=== PATIENT | female | born 1970 | race Caucasian/White ===

== ENCOUNTER 2020-09-21 06:50 | Outpatient (CLI) | payer OTHER, SELFPAY ==
--- NOTE | ~2020-09-21 | MR_ITS ---
EXAMINATION: MR brain/brain stem wo/w con DATE: 09/21/2020 09:19 INDICATION: Benign neoplasm of the brain. TECHNIQUE: Magnetic resonance imaging (MRI) of the brain and brainstem was performed without and with 20 mL MultiHance intravenous contrast. Sequences included sagittal and axial T1-weighted FSE, axial diffusion-weighted FS EPI, axial T2*-weighted GRE, axial T2-weighted FLAIR Propeller, and axial T2-we ighted Propeller. Postcontrast sequences included axial and coronal T1-weighted FSE. Apparent diffusi on coefficient (ADC) maps were created. COMPARISON: None. FINDINGS: There are 2 masses in the left superior scalp with the larger measuring 12 mm, likely benig n. There are scattered areas of nonspecific increased T2-weighted signal intensity in the cerebral wh ite matter. There is no intracranial hemorrhage, acute infarction, or abnormal intracranial mass lesi on. The ventricles are normal in size. There are mucous retention cyst in left maxillary sinus. The o rbits are normal. The mastoid air cells are normal. IMPRESSION: 1. Extensive nonspecific cerebral white matter disease. The differential diagnosis includes premature chronic small vessel ischemic disease (especially if the patient has cardiovascular risk factors), d emyelinating disease such as multiple sclerosis, drug abuse, vasculitis, or reactive astrocytosis (gl iosis) secondary to nonspecific etiology. Reviewed, dictated and finalized at location A. IMPRESSION: 1. Extensive nonspecific cerebral white matter disease. The differential diagno sis includes premature chronic small vessel ischemic disease (especially if the patient has cardiovascular risk factors), demyelinating disease such as multip le sclerosis, drug abuse, vasculitis, or reactive astrocytosis (gliosis) second julian to nonspecific etiology.
== END 2020-09-21 06:51 | disposition home or self-care (01) ==
LOC: CHSIMG 06:55
PROVIDERS: PCP Nurse Practitioner Family; Visit Provider Nurse Practitioner Family
DX: Z86.011 Personal history of benign neoplasm of the brain (principal)
CPT/HCPCS: 70553; A9577

== ENCOUNTER 2021-10-19 16:13 | Outpatient (CLI) | payer OTHER, SELFPAY ==
--- NOTE | ~2021-10-19 | XR_ITS ---
DATE: 10/19/2021 16:32 INDICATION: Anterior right shoulder pain. No known injury. TECHNIQUE: 10/19/2021 right shoulder COMPARISON: None FINDINGS: No fracture or dislocation, periosteal reaction or bone destruction. No abnormal soft tiss ue calcification. IMPRESSION: Negative Reviewed, dictated and finalized at location B. IMPRESSION: Negative
== END 2021-10-19 16:14 | disposition home or self-care (01) ==
LOC: CHSIMG 16:17
PROVIDERS: PCP Nurse Practitioner Family; Visit Provider Nurse Practitioner Family
DX: M25.511 Pain in right shoulder (principal)
CPT/HCPCS: 73030

== ENCOUNTER 2021-10-26 12:20 | Outpatient (CLI) | payer OTHER, SELFPAY | END 2021-10-26 12:21 | disposition home or self-care (01) | LOC: CHSIMG 12:21 | PROVIDERS: PCP Nurse Practitioner Family; Visit Provider Nurse Practitioner Family | DX: M25.511 Pain in right shoulder (principal); Z53.8 Procedure and treatment not carried out for other reasons | CPT/HCPCS: 99199 ==

== ENCOUNTER 2022-03-13 07:42 | Outpatient (RCR) | payer OTHER, SELFPAY ==
--- NOTE | 2022-03-13 08:17 | PTOPEVAL1 ---
Assessment and note entered by JT File, PT Evaluation Information Assessment Status Evaluation Diagnosis s/p R arthroscopic shoulder surgery Onset 02/21/22 Subjective Information patient reports she had shoulder pain for the last 6 months. she reports ultimately she thought she was getting a RTC repair, but reports they did not have to repair anything in the shoulder. she reports she had some arthritis, tendonitis, and bursitis that was cleaned up. she reports she is on no restrictions. 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 she reports she is sitting and uses a computer and phone all day. Reported Pain Level Pain Score 5: Self Report Assessment PT Clinical Summary mrs. khan presents to skilled PT services for evaluation and treatment of R shoulder pain, weakness, and decreased rom post R arthroscopic surgery. she has no restrictions, but continues to display weakness, pain, and decreased rom compared to the L UE. she would do well to attend skilled PT to improve her objective/functional deficits and progress towards a return to her prior level functional activity performance and quality of life. Plan of Care Interventions Electrical Stimulation,Hot Pack/Cold Pack,Manual Therapy,Neuro Re-education,Patient/Caregiver Educati,Therapeutic Activities,Therapeutic Exercise PT Services Indicated Yes Treatment Frequency and 3x weekly for 12 visits Duration These treatments will address the objective and functional deficits as defined above. The patient will be advanced safely and appropriately in order for the patient to progress towards his/her prior level of function. Additional exercises will be introduced and as well as a comprehensive home exercise program upon discharge, if needed, ?to ensure carryover of functional gains achieved in the clinic. This treatment plan has been reviewed and agreement upon by the patient.
--- NOTE | 2022-03-23 08:10 | PTOPPROG ---
Assessment and note entered by JT File, PT Evaluation Information Assessment Status Progress Diagnosis s/p R arthroscopic shoulder surgery Onset 02/21/22 Subjective Information patient reports she is feeling good this date. she reports she has 1/10 pain in the R shoulder. she reports she has been impressed with how it is healing thus far. she does reports difficulty still reaching far overhead in such activities as to hang laundry up. Assessment PT Clinical Summary mrs. khan presents to skilled PT services for her 4th skilled PT visit. as of this date focus of therapy has been on shinto of ROM of the R shoulder. she has improved greatly, but continues to be limited in ER and IR of the R shoulder. she was progressed in exercises this date to begin to work on return of full strength of the R shoulder. she is progressing well thus far, but would benefit from continued skilled PT to achieve full rom, strength, and functional goals for the R shoulder. Plan of Care Interventions Electrical Stimulation,Hot Pack/Cold Pack,Manual Therapy,Neuro Re-education,Patient/Caregiver Educati,Therapeutic Activities,Therapeutic Exercise PT Services Indicated Yes Treatment Frequency and continue skilled PT 3x weekly for 8 visits Duration These treatments will address the objective and functional deficits as defined above. The patient will be advanced safely and appropriately in order for the patient to progress towards his/her prior level of function. Additional exercises will be introduced and as well as a comprehensive home exercise program upon discharge, if needed, ?to ensure carryover of functional gains achieved in the clinic. This treatment plan has been reviewed and agreement upon by the patient.
== END 2022-03-16 08:16 | disposition still patient (30) ==
LOC: CHSPT 07:42
PROVIDERS: Visit Provider Specialist
DX: M25.511 Pain in right shoulder (principal)
CPT/HCPCS: 97014; 97110; 97161; G0283

== ENCOUNTER → 2022-03-16 15:36 | Outpatient (CLI) | payer OTHER, SELFPAY ==
--- NOTE | ~2022-03-16 | CT_ITS ---
EXAMINATION:CT lung screening DATE: 03/16/2022 16:14 INDICATION: Tobacco use. Current smoker with 27 pack year history. TECHNIQUE: Computed tomography (CT) of the chest was performed without intravenous contrast. Automate d exposure control and iterative reconstruction technique were employed. The dose-length product (DLP ) was 83.68 mGy-cm. COMPARISON: None. FINDINGS: There is mild emphysema. There is mild scarring at the lung apices. No pleural effusion. Th e heart size is normal. No pericardial effusion. There is mild thoracic spondylosis. IMPRESSION: 1. Lung-RADS category 2: Benign appearance or behavior. Continue annual screening with noncontrast lo w-dose chest CT in 12 months. Reviewed, dictated and finalized at location A. LY RESOURCE COORDINATOR IMPRESSION: 1. Lung-RADS category 2: Benign appearance or behavior. Continue annual screeni ng with noncontrast low-dose chest CT in 12 months.
== END ==
PROVIDERS: PCP Nurse Practitioner Family
DX: Z12.2 Encounter for screening for malignant neoplasm of respiratory organs (principal); Z87.891 Personal history of nicotine dependence
CPT/HCPCS: 71271

== ENCOUNTER 2022-03-23 08:18 | Outpatient (RCR) | payer BC, OTHER, SELFPAY ==
--- NOTE | 2022-04-25 08:03 | PTOPREEVAL ---
Assessment and note entered by JT File, PT Evaluation Information Assessment Status Re-evaluation Diagnosis s/p R arthroscopic shoulder surgery Onset 02/21/22 Subjective Information patient reports she feels Alright this date. she reports she was just recently at the surgeon for follow up on saturday. she reports he is happy with her progress. he gave her a mm relaxor for the anterior R shoulder pain, and performed and ultrasound of the R shoulder. she reports she does have a lingering partial RTC tear in the R shoulder that is old. Reported Pain Level Pain Score 2,0: Self Report Assessment PT Clinical Summary mr. khan presents to skilled PT for her 12th skilled therapy visit this date. she has met goal for HEP performance, and has made progress towards all other goals. she continues to have pain and weakness in the R shoulder that effects her functional lifting and return to normal prior activity performance. she would benefit from continued skilled PT to further progress her strength, reduce pain, and meet goals for return to prior level activities without limitations. Plan of Care Interventions Manual Therapy,Neuro Re-education,Patient/ Caregiver Educati,Therapeutic Activities, Therapeutic Exercise PT Services Indicated Yes Treatment Frequency and continue skilled PT 2x weekly for 6 more visits Duration These treatments will address the objective and functional deficits as defined above. The patient will be advanced safely and appropriately in order for the patient to progress towards his/her prior level of function. Additional exercises will be introduced and as well as a comprehensive home exercise program upon discharge, if needed, ?to ensure carryover of functional gains achieved in the clinic. This treatment plan has been reviewed and agreement upon by the patient.
== END 2022-04-30 23:59 | disposition home or self-care (01) ==
LOC: CHSPT 08:18
PROVIDERS: Visit Provider Specialist
DX: M25.511 Pain in right shoulder (principal)
CPT/HCPCS: 97014; 97110; 97140; 97530; G0283

== ENCOUNTER 2024-05-07 17:00 | Outpatient (CLI) | payer BC, OTHER, SELFPAY ==
--- NOTE | ~2024-05-07 | XR_ITS ---
EXAMINATION: XR knee RT 3V DATE: 05/07/2024 17:24 INDICATION: Right knee pain. TECHNIQUE: 3 views of right knee were obtained. COMPARISON: None. FINDINGS: Alignment is normal. No fracture. Joint spaces are normal. No knee joint effusion. IMPRESSION: 1. Normal right knee. Reviewed, dictated and finalized at location A. [facility] IMPRESSION: 1. Normal right knee.
--- OUTSIDE RECORDS SUMMARY | 2024-05-07 17:05 | XMS_ITS | Referral Summary ---
Author Organization [facility] Care Team Providers Care Brooch Maker Novelty Name Role Phone Irina Dominguez NP Primary Care Provider [phone] Allergies Active Allergy Reactions Criticality Noted Date Comments Amlodipine Other (See comments) Low 11/26/2016 EDEMA Doxycycline Lisinopril Other (See comments) Low 11/26/2016 COUGH Penicillins Hives Medium 11/26/2016 Prochlorperazine Vomiting Low 02/03/2020 Medications albuterol HFA (PROVENTIL HFA,VENTOLIN HFA,PROAIR HFA) 90 mcg/actuation inhaler Inhale 2 puffs every 4 (four) hours as needed 9 Active beclomethasone (QVAR) 40 mcg/actuation inhaler Active fluticasone propionate (FLONASE) 50 mcg/actuation nasal spray Administer 1-2 sprays into affected nostril(s) daily as needed Active montelukast (SINGULAIR) 10 mg tablet 8 Active hydroCHLOROthia zide (HYDRODIURIL) 25 mg tablet Take 25 mg by mouth daily Active metoprolol XL (TOPROL-XL) 25 mg extended release tablet Take 25 mg by mouth daily Active Active Problems Problem Noted Date Diagnosed Date CLEOPATRA (obstructive sleep apnea) 01/28/2018 Cough 12/11/2016 Essential (primary) hypertension 12/11/2016 Panlobular emphysema 12/11/2016 Tobacco use disorder 12/11/2016 Social History Tobacco Use Types Packs/Day Years Used Date Smoking Tobacco: Every Day AUDIT-C Answer Date Recorded Q1: How often do you have a drink containing alc ohol? Monthly or less 11/08/2020 Average Number of Drinks Not on file 021 Frequency of Binge Drinking Not on file 10/17 Comments No Sex and Gender Information Value Date Recorded Sex Assigned at Not on file Legal Sex Female 10:57 AM BROWNING PROCESSOR Gender Identity Female 02/03/2020 7:30 AM BROWNING PROCESSOR Sexual Orientation Straight 02/03/2020 7: 30 AM BROWNING PROCESSOR Last Filed Vital Signs Vital Sign Reading Time Taken Comments Blood Pressure 120/90 02/16/2021 11:44 AM BROWNING PROCESSOR Pulse 85 02/16/2021 11:44 AM BROWNING PROCESSOR Temperature 36.4 C (97.5 F) 02/03/2020 8:23 AM BROWNING PROCESSOR Respiratory Rate 12 02/16/2021 11:44 AM BROWNING PROCESSOR Oxygen Saturation - - Inhaled Oxygen Concentration - - Weight 69.7 kg (153 lb 8.8 oz) 02/16/2021 11:44 AM BROWNING PROCESSOR Height 157.5 cm (5' 2 ) 02/16/2021 11:44 AM BROWNING PROCESSOR Body Mass Index 28.08 02/16/2021 11:44 AM BROWNING PROCESSOR Plan of Treatment Not on file Insurance CIG Care Teams Brooch Maker Novelty Relationship Specialty Start Date End Date Irina Dominguez NP [address] [place] [address] PCP - General Nurse Practitioner 10/05/20
--- OUTSIDE RECORDS SUMMARY | 2024-05-07 17:05 | XMS_ITS | Clinical Summary ---
Author Organization [facility] HealthCare Care Team Providers Care Rn Trauma Name Role Phone AngelicaBryantIrinadennis Waldron NP Primary Care Provider [phone] Allergies Active Allergy Reactions Criticality Noted Date [...] Panlobular emphysema 12/11/2016 Tobacco use disorder 12/11/2016 Surgical History Surgery Date Site/Laterality Comments HYSTERECTOMY Medical History Medical History Date Comments Smoking Hypertension COPD (chronic obstructive pulmonary disease) (HC C) Family History Medical History Relation Name Comments Breast cancer Mother Relation Name Status Comments Mother Social History Tobacco Use Types Packs/Day Years [...] on file Legal Sex Female 10:57 AM ABSORPTION PLANT OPERATOR Gender Identity Female 02/03/2020 7:30 AM ABSORPTION PLANT OPERATOR Sexual Orientation Straight 02/03/2020 7: 30 AM ABSORPTION PLANT OPERATOR Obstetrics History Para Term AB IAB SAB Ectopic Multiple Livin g Live Births 2 2 2 Date Outcome GA Total Labor Labor/2nd/3rd Weight Sex Type Anes PTL Liliana A1 A5 Name Clin Term Term Last Filed Vital Signs Vital Sign Reading Time Taken Comments Blood Pressure 120/90 02/16/2021 11:44 AM ABSORPTION PLANT OPERATOR Pulse 85 02/16/2021 11:44 AM ABSORPTION PLANT OPERATOR Temperature 36.4 C (97.5 F) 02/03/2020 8:23 AM ABSORPTION PLANT OPERATOR Respiratory Rate 12 02/16/2021 11:44 AM ABSORPTION PLANT OPERATOR Oxygen Saturation - - Inhaled Oxygen Concentration - - Weight 69.7 kg (153 lb 8.8 oz) 02/16/2021 11:44 AM ABSORPTION PLANT OPERATOR Height 157.5 cm (5' 2 ) 02/16/2021 11:44 AM ABSORPTION PLANT OPERATOR Body Mass Index 28.08 02/16/2021 11:44 AM ABSORPTION PLANT OPERATOR Plan of Treatment Not on file Insurance CIGFRANKIE Care Teams Rn Trauma Relationship Specialty Start Date End Date Irina Dominguez NP [address] [place] [address] PCP - General Nurse Practitioner 10/05/20
--- OUTSIDE RECORDS SUMMARY | 2024-05-07 17:05 | XMS_ITS | Continuity of Care Document ---
Author Organization [facility] Address [address] [place] [address] Phone Care Team Providers Care Punch Finisher Name Role Phone [facility] Unavailable Unavail able Deuce Hennessy Unavailable Unavailable Procedures Procedure Date Vision Svcs Frames Purchases SV Plastic Sph [place] To +/- 4 6 Lens-Index 1.54-1.79 Glass [facility] Frames Purchases SV Plastic Sph [place] To +/- 4 2 Tint Photochromatic, Plastic Anti-reflective Coating Roll And/or Italian Eye Exam & Treatment Advance Directives Directive Yes / No Effective Date File Name No Information Encounters Encounter Description Practice Location Reason(s) For Visit Diagnoses Date Provider Providers Copied on Encounter [facility], [address], [place], [place], [address], [place] tel:[phone] SEC Enedina Juarez No Information 6 [facility] . [address] [facility], [address], [id number], [place]. tel:[phone] Referring Provider: Dennis Franco, [address] [facility] [address] [facility], [place], [address] . tel:[phone] sulting Provider: Deuce Hennessy, [address], [place], [address] . tel:[phone] [facility], [address], [place], [place], [address], [place] tel:[phone] SEC Enedina Juarez No Information 2 [facility] . [address] [facility], [address], [place], [place], [address], [place]. tel:[phone] Referring Provider: Felipe Michaels, [address] [facility], [place], [address] . tel:[phone] [facility], [address], [place], [place], [address], [place] tel:[phone] SEC Enedina Juarez No Information 2 Kaylah Wang. [address] [facility], [facility] [place], [address], [place]. tel:[phone] Family History Family Member Type Diagnosis Age At Onset No Information Payers Payer name Insurance type Covered democrat ID Authorjacoba rogejessee(s) [facility] CI [id number] Social History Type Description Quantity Date Captured [...]
--- OUTSIDE RECORDS SUMMARY | 2024-05-07 17:06 | XMS_ITS | Data Portability ---
Author Organization [facility] Address [address] [place] [address] Care Team Providers [facility] [employer] [facility] Manager Name Role Phone SONIA ANDRADE [employer] IRINA JACKSON Primary Care Provider Assessment No assessment recorded. Plan of Treatment Reminders Order Date Submit Date Provider Last Modified By Organization Details Last Modified Time Details Appointments ACUTE 15 2024 03:30P M Irina Jackson APN, JACKER-C Not available Not available Not available Lab fecal occult blood, immunoa ssay, stool 2022 023 [email or web address] [facility], 2022 Lillian Cooney, [address], [address], 06/04/2023 08:40:43 Referral None recorde d. Procedures None recorde d. Surgeries None recorde d. Imaging None recorde d. Medication Orders montelu kast 10 mg tablet 2023 024 [facility], [place], [address], 06/04/2023 09:29:14 phenter mine 15 mg capsule 2023 024 [id number], [address] [place], [address], 07/29/2023 18:05:07 azithro mycin 250 mg tablet 2023 024 [id number], [address] [place], [address], 02/27/2024 16:34:12 Medrol (Jc) 4 mg tablets in a dose pack 2023 024 alicea [facility]/Pharmacy #[id number], [address] [place], [address], 02/27/2024 16:34:45 cyclobe nzaprin e 10 mg tablet 2023 024 [id number], [address] [place], [address], 06/04/2023 09:29:17 flutica sone propion ate 50 mcg/act uation nasal spray,s uspensi on 2022 023 [place] [facility], [facility], [place], [address], 11/22/2022 09:09:19 Patient TargetsNo targets recorded. Patient Instructions Encounter Date Encounter Id Patient Instructions Last Modified By Organization Details Last Modified Time 11/22/2022 [id number] allergies: care instructions Not available 11/22/2022 09:09:16 managing your allergies: care instructions Not available 11/22/2022 09:09:16 deciding about using medicines to quit smoking Not available 11/22/2022 09:09:16 Quitting Tobacco : Care Instructions Not available 11/22/2022 09:09:16 cholesterol and triglycerides tests: about these tests Not available 11/22/2022 09:09:16 A healthy lifestyle: care instructions Not available 11/22/2022 09:09:16 prediabetes: car e instructions Not available 11/22/2022 09:09:16 chronic obstructive pulmonary disease (COPD): care instructions Not available 11/22/2022 09:09:16 learning about copd and how to prevent lung infections Not available 11/22/2022 09:09:16 sleep apnea: car e instructions Not available 11/22/2022 09:09:16 learning about vitamin D Not available 11/22/2022 09:09:16 learning about high blood pressure Not available 11/22/2022 09:09:16 Check blood pressure two or three times per week and record findings; bring to F/U appointment. [place] blood pressure is the top number below 140 and the bottom number below 90. If you experience any side effects of medication, call the office. Follow a low salt diet, drink at least 8-10 8oz glasses of water a day, exercise most days of the week. Not available 11/22/2022 09:02:40 follow up in 6 months Not available 11/22/2022 17:51:03 12/06/2022 [id number] influenza (flu) vaccine: care instructions Not available 12/06/2022 16:34:24 06/04/2023 [id number] deciding about using medicines to quit smoking Not available 06/04/2023 09:29:07 Quitting Tobacco : Care Instructions Not available 06/04/2023 09:29:06 allergies: care instructions Not available 06/04/2023 09:29:07 managing your allergies: care instructions Not available 06/04/2023 09:29:06 cholesterol and triglycerides tests: about these tests Not available 06/04/2023 09:29:07 prediabetes: car e instructions Not available 06/04/2023 09:29:06 chronic obstructive pulmonary disease (COPD): care instructions Not available 06/04/2023 09:29:06 learning about copd and how to prevent lung infections Not available 06/04/2023 09:29:07 A healthy lifestyle: care instructions Not available 06/04/2023 09:29:06 sleep apnea: car e instructions Not available 06/04/2023 09:29:07 learning about vitamin D Not available 06/04/2023 09:29:07 learning about high blood pressure Not available 06/04/2023 09:29:07 Check blood pressure two or three times per week and record findings; bring to F/U appointment. [place] blood pressure is the top number below 140 and the bottom number below 90. If you experience any side effects of medication, call the office. Follow a low salt diet, drink at least 8-10 8oz glasses of water a day, exercise most days of the week. Not available 06/04/2023 09:12:12 follow up in 3 months Not available 06/04/2023 09:27:09 02/27/2024 [id number] influenza (flu) vaccine: care instructions Not available 02/27/2024 17:02:32 deciding about using medicines to quit smoking Not available 02/27/2024 17:01:48 Quitting Tobacco : Care Instructions Not available 02/27/2024 17:01:48 allergies: care instructions Not available 02/27/2024 17:01:48 managing your allergies: care instructions Not available 02/27/2024 17:01:48 cholesterol and triglycerides tests: about these tests Not available 02/27/2024 17:01:48 A healthy lifestyle: care instructions Not available 02/27/2024 17:01:48 prediabetes: car e instructions Not available 02/27/2024 17:01:48 chronic obstructive pulmonary disease (COPD): care instructions Not available 02/27/2024 17:01:48 learning about copd and how to prevent lung infections Not available 02/27/2024 17:01:48 sleep apnea: car e instructions Not available 02/27/2024 17:01:48 learning about vitamin D Not available 02/27/2024 17:01:48 learning about high blood pressure Not available 02/27/2024 17:01:48 Check blood pressure two or three times per week and record findings; bring to F/U appointment. [place] blood pressure is the top number below 140 and the bottom number below 90. If you experience any side effects of medication, call the office. Follow a low salt diet, drink at least 8-10 8oz glasses of water a day, exercise most days of the week. Not available 02/27/2024 16:44:55 follow up in 6 months Not available 02/27/2024 16:45:02 Reason for Referral None Reported. Results Created Date Observation Date Name Description Value Unit Range Abnormal Flag Note LastModifiedBy Organization Detail LastModifiedTime 11/23/1911/23/2022 LIPID PANEL cholesterol, total 216 mg/dL 100-19 9 above high normal Not Available [facility] Department [address] [place] [address], [address], 11/23/2022 03:08:28 11/23/19 23 11/23/2022 LIPID PANEL triglyceride s 331 mg/dL 0-149 above high normal Not Available [facility] Department [address] [place] [address], [address], 11/23/2022 03:08:28 11/23/1911/23/2022 LIPID PANEL HDL cholesterol 61 mg/dL 40-999 Not Available [facility] Department [address] [place] [address], [address], 11/23/2022 03:08:28 11/23/1911/23/2022 LIPID PANEL VLDL cholesterol valeria 66 mg/dL 5-40 above high normal Not Available [facility] Department [address] [place] [address], [address], 11/23/2022 03:08:28 11/23/1911/23/2022 LIPID PANEL LDL chol calc (nih) 139 mg/dL 0-99 above high normal Not Available [facility] Department [address] [place] [address], [address], 11/23/2022 03:08:28 11/23/1911/23/2022 COMP. METAB OLIC PANEL (14) glucose 105 mg/dL 70-99 above high normal Not Available [facility] Department [address] [place] [address], [address], 11/23/2022 03:08:29 11/23/19 23 11/23/2022 COMP. METAB OLIC PANEL (14) BUN 10 mg/dL 6-24 Not Available [facility] Department [address] [place] [address], [address], 11/23/2022 03:08:29 11/23/19 23 11/23/2022 COMP. METAB OLIC PANEL (14) creatinine 0.76 mg/dL 0.76-1 .27 Not Available [facility] Department [address] [place] [address], [address], 11/23/2022 03:08:29 11/23/19 23 11/23/2022 COMP. METAB OLIC PANEL (14) eGFR 95 >=60 Units for eGFR value s are mL/mi n/1.7 3 The eGFR Calcu latio n has not been valid ated for patie nts under the age of 18. If test resul ts are displ ayed for a patie nt under the age of 18, disre lg that value . Not Available [facility] Department [address] [place] [address], [address], 11/23/2022 03:08:29 11/23/19 23 11/23/2022 COMP. METAB OLIC PANEL (14) BUN/creatini ne ratio 13 9-23 Not Available [facility] Department [address] [place] [address], [address], 11/23/2022 03:08:29 11/23/19 23 11/23/2022 COMP. METAB OLIC PANEL (14) sodium 137 mmol/ L 134-14 4 Not Available [facility] Department [address] [place] [address], [address], 11/23/2022 03:08:29 11/23/19 23 11/23/2022 COMP. METAB OLIC PANEL (14) potassium 4.1 mmol/ L 3.5-5. 2 Not Available [facility] Department [address] [place] [address], [address], 11/23/2022 03:08:29 11/23/19 23 11/23/2022 COMP. METAB OLIC PANEL (14) chloride 97 mmol/ L 96-106 Not Available [facility] Department [address] [place] [address], [address], 11/23/2022 03:08:29 11/23/19 23 11/23/2022 COMP. METAB OLIC PANEL (14) carbon dioxide, total 29 mmol/ L 20-29 Not Available [facility] [address] [place] [address], [address], 11/23/2022 03:08:29 11/23/19 23 11/23/2022 COMP. METAB OLIC PANEL (14) calcium 10.0 mg/dL 8.7-10 .2 Not Available [facility] Department [address] [place] [address], [address], 11/23/2022 03:08:29 11/23/19 23 11/23/2022 COMP. METAB OLIC PANEL (14) protein, total 7.2 g/dL 6.0-8. 5 Not Available [facility] Department [address] [place] [address], [address], 11/23/2022 03:08:29 11/23/19 23 11/23/2022 COMP. METAB OLIC PANEL (14) albumin 4.5 g/dL 3.8-4. 9 Not Available [facility] Department [address] [place] [address], [address], 11/23/2022 03:08:29 11/23/19 23 11/23/2022 COMP. METAB OLIC PANEL (14) globulin, total 2.7 g/dL 1.5-4. 5 Not Available [facility] Department [address] [place] [address], [address], 11/23/2022 03:08:29 11/23/19 23 11/23/2022 COMP. METAB OLIC PANEL (14) A/G ratio 2.0 1.2-2. 2 Not Available [facility] Department [address] [place] [address], [address], 11/23/2022 03:08:29 11/23/19 23 11/23/2022 COMP. METAB OLIC PANEL (14) bilirubin, total 0.4 mg/dL 0.0-1. 2 Not Available [facility] Department [address] [place], [address], 11/23/2022 03:08:29 11/23/19 23 11/23/2022 COMP. METAB OLIC PANEL (14) alkaline phosphatase 74 IU/L 44-121 Not Available [facility] Department [address] [place] [address], [address], 11/23/2022 03:08:29 11/23/19 23 11/23/2022 COMP. METAB OLIC PANEL (14) AST (SGOT) 15 IU/L 0-40 Not Available [facility] Department [address] [place] [address], [address], 11/23/2022 03:08:29 11/23/19 23 11/23/2022 COMP. METAB OLIC PANEL (14) ALT (SGPT) 14 IU/L 0-32 Not Available [facility] Department [address] [place] [address], [address], 11/23/2022 03:08:29 11/23/19 23 11/23/2022 CBC, NO DIFFE RENTI AL/PL ATELE T WBC 11.0 x10e3 /uL 3.4-10 .8 above high normal Not Available [facility] Department [address] [place] [address], [address], 11/23/2022 03:08:30 11/23/1911/23/2022 CBC, NO DIFFE RENTI AL/PL ATELE T RBC 5.50 x10e6 /uL 3.77-5 .28 above high normal Not Available [facility] Department [address] [place] [address], [address], 11/23/2022 03:08:30 11/23/1911/23/2022 CBC, NO DIFFE RENTI AL/PL ATELE T hemoglobin 16.8 g/dL 11.1-1 5.9 above high normal Not Available [facility] Department [address] [place], [address], 11/23/2022 03:08:30 11/23/1911/23/2022 CBC, NO DIFFE RENTI AL/PL ATELE T hematocrit 52.4 % 34.0-4 6.6 above high normal Not Available [facility] [address] [place], [address], 11/23/2022 03:08:30 11/23/1911/23/2022 CBC, NO DIFFE RENTI AL/PL ATELE T MCV 95 fL 79-97 Not Available [facility] Department [address] [place], [address], 11/23/2022 03:08:30 11/23/1911/23/2022 CBC, NO DIFFE RENTI AL/PL ATELE T MCH 30.5 pg 26.6-3 3.0 Not Available [facility] Department [address] [place], [address], 11/23/2022 03:08:30 11/23/1911/23/2022 CBC, NO DIFFE RENTI AL/PL ATELE T MCHC 32.1 g/dL 31.5-3 5.7 Not Available [facility] [address] [place], [address], 11/23/2022 03:08:30 11/23/1911/23/2022 CBC, NO DIFFE RENTI AL/PL ATELE T RDW 13.9 % 11.5-1 4.5 Not Available [facility] Department [address] [place], [address], 11/23/2022 03:08:30 11/23/1911/2311/23/2022 CBC, NO DIFFE RENTI AL/PL ATELE T NRBC 0 % 0-0 Not Available [facility] [address] [place], [address], 11/23/2022 03:08:30 11/23/19 23 11/23/2022 TSH RFX ON ABNOR MAL TO FREE T4 TSH 0.558 uIU/m L 0.450- 4.500 Not Available [facility] ([facility] [place] [facility] [address] [facility], [place], [address], 11/23/2022 07:13:05 11/23/1911/22/2022 HEMOG LOBIN A1C hemoglobin A1C 6.1 % 4.8-5. 6 above high normal Predi abete s: 5.7 - 6.4 Diabe tomeka: >6.4 Glyce chiara contr ol for adult s with diabe tomeka: <7.0 Not Available [facility] ([facility] [place] [place] [facility]) [address] [facility], [place], [address], 11/23/2022 07:13:06 11/23/19 23 11/23/2022 VITAM IN D, 25-HY DROXY vitamin D, 25-hydroxy 59.4 NG/mL 30.0-1 00.0 Vitam in D defic iency has been defin ed by the Insti tute of Medic ine and an Endoc rine Socie ty pract ice guide line as a level of serum 25-OH vitam in D less than 20 ng/mL (1,2) . The Endoc rine Socie ty went on to furth er defin e vitam in D insuf ficie ncy as a level betwe en 21 and 29 ng/mL (2). 1. IOM (Inst itute of Medic ine). 2009. Dieta ry refer ence intak es for calci um and D. Jennifer greene DC: The [employer] n[employer] sc[employer] . 2. Cailin del rio [place], [place] ey [place], Blu off-F errar i CHAMPION, et al. Evalu ation , treat ment, and preve ntion of vitam in D defic iency : an Endoc rine Socie ty clini valeria pract ice guide line. JCEM. 2010; 96(7) :1911 -30. Not Available [facility] ([facility] [place] [place] [facility]) [address] [facility], [place], [address], 11/23/2022 07:13:07 06/05/19 24 06/06/2023 COLOF IT,OC CULT BLOOD ,FECA L,IA occult blood, fecal, ia Negati ve negati ve Not Available [facility] ([facility] [place] [place] [facility] [address] [facility], [place], [address], 06/06/2023 16:13:50 02/27/20 24 02/28/2024 LIPID PANEL cholesterol, total 218 mg/dL 100-19 9 above high normal Not Available [facility] ([facility] [place] [place] [facility]) [address] [place], [address], 02/28/2024 10:37:25 02/27/20 24 02/28/2024 LIPID PANEL triglyceride s 238 mg/dL 0-149 above high normal Not Available [facility] ([facility] [place] [place] [facility]) [address] [place], [address], 02/28/2024 10:37:25 02/27/20 24 02/28/2024 LIPID PANEL HDL cholesterol 50 mg/dL >39 Not Available [facility] [place] [place] [facility]) [address] [place], [address], 02/28/2024 10:37:25 02/27/20 24 02/28/2024 LIPID PANEL VLDL cholesterol valeria 42 mg/dL 5-40 above high normal Not Available [facility] ([facility] [place] [place] [facility]) [address] [place], [address], 02/28/2024 10:37:25 02/27/20 24 02/28/2024 LIPID PANEL LDL chol calc ([facility]) 126 mg/dL 0-99 above high normal Not Available [facility] ([facility] [place] [place] [facility] [address] [facility] [place], [address], 02/28/2024 10:37:25 02/27/20 24 02/28/2024 COMP. METAB OLIC PANEL (14) glucose 95 mg/dL 70-99 Not Available [facility] ([facility] [place] [place] [facility]) [address] [facility], [place], [address], 02/28/2024 10:37:27 02/27/20 24 02/28/2024 COMP. METAB OLIC PANEL (14) BUN 12 mg/dL 6-24 Not Available [facility] ([facility] [place] [place] [facility] [address] [facility] [place], [address], 02/28/2024 10:37:27 02/27/20 24 02/28/2024 COMP. METAB OLIC PANEL (14) creatinine 0.79 mg/dL 0.57-1 .00 Not Available [facility] ([facility] [place] [place] [facility]) [address] [facility], [place], [address], 02/28/2024 10:37:27 02/27/20 24 02/28/2024 COMP. METAB OLIC PANEL (14) eGFR 90 mL/mi n/1.7 3 >59 Not Available [facility] ([facility] [place] [place] [facility]) [address] [facility], [place], [address], 02/28/2024 10:37:27 02/27/20 24 02/28/2024 COMP. METAB OLIC PANEL (14) BUN/creatini ne ratio 15 9-23 Not Available [facility] ([facility] [place] [place] [facility] [address] [facility] [place], [address], 02/28/2024 10:37:27 02/27/20 24 02/28/2024 COMP. METAB OLIC PANEL (14) sodium 139 mmol/ L 134-14 4 Not Available [facility] ([facility] [place] [place] [facility]) [address] [place], [address], 02/28/2024 10:37:27 02/27/20 24 02/28/2024 COMP. METAB OLIC PANEL (14) potassium 4.3 mmol/ L 3.5-5. 2 Not Available [facility] ([facility] [place] [place] [facility]) [address] [place], [address], 02/28/2024 10:37:27 02/27/20 24 02/28/2024 COMP. METAB OLIC PANEL (14) chloride 98 mmol/ L 96-106 Not Available [facility] ([facility] [place] [place] [facility]) [address] [place], [address], 02/28/2024 10:37:27 02/27/20 24 02/28/2024 COMP. METAB OLIC PANEL (14) carbon dioxide, total 25 mmol/ L 20-29 Not Available [facility] ([facility] [place] [place] [facility] [address] [facility], [place], [address], 02/28/2024 10:37:27 02/27/20 24 02/28/2024 COMP. METAB OLIC PANEL (14) calcium 9.6 mg/dL 8.7-10 .2 Not Available [facility] ([facility] [place] [place] [facility]) [address] [place], [address], 02/28/2024 10:37:27 02/27/20 24 02/28/2024 COMP. METAB OLIC PANEL (14) protein, total 6.4 g/dL 6.0-8. 5 Not Available [facility] ([facility] [place] [place] [facility]) [address] [place], [address], 02/28/2024 10:37:27 02/27/20 24 02/28/2024 COMP. METAB OLIC PANEL (14) albumin 4.3 g/dL 3.8-4. 9 Not Available [facility] ([facility] [place] [place] [facility]) [address] [place], [address], 02/28/2024 10:37:27 02/27/20 24 02/28/2024 COMP. METAB OLIC PANEL (14) globulin, total 2.1 g/dL 1.5-4. 5 Not Available [facility] ([facility] [place] [place] [facility] [address] [facility] [place], [address], 02/28/2024 10:37:27 02/27/20 24 02/28/2024 COMP. METAB OLIC PANEL (14) bilirubin, total 0.2 mg/dL 0.0-1. 2 Not Available [facility] ([facility] [place] [place] [facility] [address] [facility] [place], [address], 02/28/2024 10:37:27 02/27/20 24 02/28/2024 COMP. METAB OLIC PANEL (14) alkaline phosphatase 75 IU/L 44-121 Not Available [facility] ([facility] [place] [place] [facility] [address] [facility] [place], [address], 02/28/2024 10:37:27 02/27/20 24 02/28/2024 COMP. METAB OLIC PANEL (14) AST (SGOT) 14 IU/L 0-40 Not Available [facility] ([facility] [place] [place] [facility] [address] [facility] [place], [address], 02/28/2024 10:37:27 02/27/20 24 02/28/2024 COMP. METAB OLIC PANEL (14) ALT (SGPT) 12 IU/L 0-32 Not Available [facility] ([facility] [place] [place] [facility] [address] [facility] [place], [address], 02/28/2024 10:37:27 02/27/20 24 02/28/2024 TSH RFX ON ABNOR MAL TO FREE T4 TSH 0.813 uIU/m L 0.450- 4.500 Not Available [facility] ([facility] [place] [place] [facility] [address] [facility] [place], [address], 02/28/2024 10:37:28 02/27/20 24 02/28/2024 VITAM IN B12 AND FOLAT E vitamin B12 >2000 above high normal Not Available [facility] ([facility] [place] [place] [facility]) [address] [facility], [place], [address], 02/28/2024 10:37:30 02/27/20 24 02/28/2024 VITAM IN B12 AND FOLAT E folate (folic acid), serum 8.6 NG/mL >3.0 A serum folat e venus ntrat ion of less than 3.1 ng/mL is consi dered to repre sent clini valeria defic iency . Not Available [facility] ([facility] [place] [place] [facility]) [address] [facility], [place], [address], 02/28/2024 10:37:30 02/27/20 24 02/28/2024 HEMOG LOBIN A1C hemoglobin A1C 6.4 % 4.8-5. 6 above high normal Predi abete s: 5.7 - 6.4 Diabe tomeka: >6.4 Glyce chiara contr ol for adult s with diabe tomeka: <7.0 Not Available [facility] ([facility] [place] [place] [facility]) [address] [facility], [place], [address], 02/28/2024 10:37:31 02/27/20 24 02/28/2024 CBC WITH DIFFE RENTI AL/PL ATELE T WBC 11.5 x10e3 /uL 3.4-10 .8 above high normal Not Available [facility] ([facility] [place] [place] [facility] [address] [facility], [place], [address], 02/28/2024 10:37:32 02/27/20 24 02/28/2024 CBC WITH DIFFE RENTI AL/PL ATELE T RBC 5.13 x10e6 /uL 3.77-5 .28 Not Available [facility] ([facility] [place] [place] [facility] [address] [facility], [place], [address], 02/28/2024 10:37:32 02/27/20 24 02/28/2024 CBC WITH DIFFE RENTI AL/PL ATELE T hemoglobin 16.1 g/dL 11.1-1 5.9 above high normal Not Available [facility] ([facility] [place] [place] [facility] [address] [facility], [place], [address], 02/28/2024 10:37:32 02/27/20 24 02/28/2024 CBC WITH DIFFE RENTI AL/PL ATELE T hematocrit 47.5 % 34.0-4 6.6 above high normal Not Available [facility] ([facility] [place] [place] [facility]) [address] [place], [address], 02/28/2024 10:37:32 02/27/20 24 02/28/2024 CBC WITH DIFFE RENTI AL/PL ATELE T MCV 93 fL 79-97 Not Available [facility] ([facility] [place] [place] [facility] [address] [place], [address], 02/28/2024 10:37:32 02/27/20 24 02/28/2024 CBC WITH DIFFE RENTI AL/PL ATELE T MCH 31.4 pg 26.6-3 3.0 Not Available [facility] ([facility] [place] [place] [facility] [address] [facility], [place], [address], 02/28/2024 10:37:32 02/27/20 24 02/28/2024 CBC WITH DIFFE RENTI AL/PL ATELE T MCHC 33.9 g/dL 31.5-3 5.7 Not Available [facility] ([facility] [place] [place] [facility]) [address] [place], [address], 02/28/2024 10:37:32 02/27/20 24 02/28/2024 CBC WITH DIFFE RENTI AL/PL ATELE T RDW 12.8 % 11.7-1 5.4 Not Available [facility] ([facility] [place] [place] [facility] [address] [place], [address], 02/28/2024 10:37:32 02/27/20 24 02/28/2024 CBC WITH DIFFE RENTI AL/PL ATELE T platelets 363 x10e3 /uL 150-45 0 Not Available [facility] ([facility] [place] [place] [facility] [address] [place], [address], 02/28/2024 10:37:32 02/27/20 24 02/28/2024 CBC WITH DIFFE RENTI AL/PL ATELE T neutrophils 71 % notest ab. Not Available [facility] ([facility] [place] [place] [facility] [address] [facility], [place], [address], 02/28/2024 10:37:32 02/27/20 24 02/28/2024 CBC WITH DIFFE RENTI AL/PL ATELE T lymphs 22 % notest ab. Not Available [facility] ([facility] [place] [place] [facility] [address] [facility], [place], [address], 02/28/2024 10:37:32 02/27/20 24 02/28/2024 CBC WITH DIFFE RENTI AL/PL ATELE T monocytes 6 % notest ab. Not Available [facility] ([facility] [place] [place] [facility] [address] [facility], [place], [address], 02/28/2024 10:37:32 02/27/20 24 02/28/2024 CBC WITH DIFFE RENTI AL/PL ATELE T eos 1 % notest ab. Not Available [facility] ([facility] [place] [place] [facility] [address] [facility], [place], [address], 02/28/2024 10:37:32 02/27/20 24 02/28/2024 CBC WITH DIFFE RENTI AL/PL ATELE T basos 0 % notest ab. Not Available [facility] [place] [place] [facility] [address] [facility], [place], [address], 02/28/2024 10:37:32 02/27/20 24 02/28/2024 CBC WITH DIFFE RENTI AL/PL ATELE T neutrophils (absolute) 8.2 x10e3 /uL 1.4-7. 0 above high normal Not Available [facility] ([facility] [place] [place] [facility] [address] [facility], [place], [address], 02/28/2024 10:37:32 02/27/20 24 02/28/2024 CBC WITH DIFFE RENTI AL/PL ATELE T lymphs (absolute) 2.5 x10e3 /uL 0.7-3. 1 Not Available [facility] ([facility] [place] [place] [facility] [address] [facility], [place], [address], 02/28/2024 10:37:32 02/27/20 24 02/28/2024 CBC WITH DIFFE RENTI AL/PL ATELE T monocytes(ab solute) 0.7 x10e3 /uL 0.1-0. 9 Not Available [facility] ([facility] [place] [place] [facility] [address] [facility], [place], [address], 02/28/2024 10:37:32 02/27/20 24 02/28/2024 CBC WITH DIFFE RENTI AL/PL ATELE T eos (absolute) 0.1 x10e3 /uL 0.0-0. 4 Not Available [facility] ([facility] [place] [place] [facility] [address] [facility], [place], [address], 02/28/2024 10:37:32 02/27/20 24 02/28/2024 CBC WITH DIFFE RENTI AL/PL ATELE T baso (absolute) 0.1 x10e3 /uL 0.0-0. 2 Not Available [facility] ([facility] [place] [place] [facility] [address] [facility], [place], [address], 02/28/2024 10:37:32 02/27/20 24 02/28/2024 CBC WITH DIFFE RENTI AL/PL ATELE T immature granulocytes 0 % notest ab. Not Available [facility] ([facility] [place] [place] [facility] [address] [facility], [place], [address], 02/28/2024 10:37:32 02/27/20 24 02/28/2024 CBC WITH DIFFE RENTI AL/PL ATELE T immature grans (abs) 0.0 x10e3 /uL 0.0-0. 1 Not Available [facility] ([facility] [place] [place] [place] [facility] [address] [facility], [place], [address], 02/28/2024 10:37:32 02/27/20 24 02/28/2024 VITAM IN D, 25-HY DROXY vitamin D, 25-hydroxy 85.3 NG/mL 30.0-1 00.0 Vitam in D defic iency has been defin ed by the Insti tute of Medic ine and an Endoc rine Socie ty pract ice guide line as a level of serum 25-OH vitam in D less than 20 ng/mL (1,2) . The Endoc rine Socie ty went on to furth er defin e vitam in D insuf ficie ncy as a level betwe en 21 and 29 ng/mL (2). 1. IOM (Inst itute of Medic ine). 2010. Aleidaa ry refer ence intak es for calci um and D. Jennifer greene [place]: [facility] . 2. Cailin del rio [place], Willis mcconnell [place], Blu off-F errar i [employer]AMP[employer], et al. Evalu ation , treat ment, and preve ntion of vitam in D defic iency : an Endoc rine Socie ty clini valeria pract ice guide line. JCEM. 2010; 96(7) :1911 -30. Not Available [facility] ([facility] [place] [place] [place] [facility] [address] [facility], [place], [address], 02/28/2024 10:37:34 03/19/19 25 03/10/2024 MAMMO maxi, digit al, bilat eral No observ ation record ed. [facility] [address] [place], [address], 03/19/2024 13:25:24 04/21/19 25 04/21/2024 MAMMO maxi, digit al, bilat eral No observ ation record ed. [facility] (Radiology) [address] [place], [address], 04/29/2024 11:46:34 Result Notes None recorded. Problems Name Problem SNOMED Code Status Onset Date Resolution Date Notes Provider Name and Address Organization Details Recorded Time Acute exacerbat ion of chronic obstructi ve pulmonary disease 255311493 Completed 201709/14/2020 Irina Jackson APN, FNP-C Attn: Accounting, [address] [facility], [place], [place], [address] [place] [address], [facility] - [facility] 1 09:39:52 Tobacco dependenc e syndrome 92716397 Active 2019 Not Available [facility] 0 12:22:35 Hypertrig lyceridem ia 446028697 Active 2019 Not Available [facility] 0 12:22:35 Essential hypertens ion 98534774 Active 2019 Irina Jackson APN, FNP-C Attn: Accounting, [address] [facility], [place], [place], [address] [place] [address], [facility] - [facility] 4 09:53:58 Obstructi ve sleep apnea syndrome 86611048 Active 2019 Irina Jackson APN, FNP-C Attn: Accounting, [address] [place], [place], [address] [place] [address], [facility] - [facility] 4 09:53:58 Allergic rhinitis 57809532 Active 2019 Not Available [facility] 0 12:22:35 Spinal stenosis in cervical region 74327347 Active 2019 Leidy Oneill MD Attn: Accounting, [address] [place], [place], [address] [place] [address], [place] - [place] 0 15:45:37 Vitamin D deficienc y 45831926 Active 2019 Irina Jackson APN, FNP-C Attn: Accounting, [address] [place], [place], [address] [place] [address], [place] [facility] 0 13:38:16 Poor short-ter m memory 127400099 Active 2020 Irina Jackson APN, FNP-C Attn: Accounting, [address] [facility], [place], [place], [address] [place] [address], [place] [facility] 1 09:50:25 History of benign neoplasm of brain 662498396 Active 2020 Irina Jackson APN, SUDEEP Attn: Accounting, [address] [facility], [place], [place], [address] [place] [address], [place] [facility] 1 09:50:28 Prediabet es 955480366 Active 2020 Irina Jackson APN, FNP-C Attn: Accounting, [address] [facility], [place], [address] [place] [address], [place] [facility] 1 09:50:31 Chronic obstructi ve pulmonary disease 13801425 Active Not Available [facility] 0 12:22:35 Dysfuncti onal uterine bleeding Active Not Available [facility] 0 12:22:35 Disturban ce in mood 30904905 Active Not Available [facility] 0 12:22:35 Hypertens tatiana disorder 28308653 Completed 12/15/2019 Leidy Oneill MD Attn: Accounting, [address] [facility], [place], [address] [place] [address], [place] [facility] 0 09:31:32 Constipat ion 54460940 Completed 12/15/2019 Leidy Oneill MD Attn: Accounting, [address] [facility], [place], [address] [place] [address], [place] [facility] 0 09:32:03 Urinary tract infectiou s disease 09985159 Completed 12/15/2019 Leidy Oneill MD Attn: Accounting, [address] [facility], [place], [address] [place] [address], [place] [facility] 0 09:32:15 Tobacco user 684958575 Active Irina Jackson APN, FNP-C Attn: Accounting, [address] [facility], [place], [address] [place] [address], [place] [facility] 4 09:53:58 Upper respirato ry infection 35116157 Completed 12/15/2019 Leidy Oneill MD Attn: Accounting, [address] [facility], [place], [address] [place] [address], [facility] - [facility] 0 09:32:11 Folliculi tis 07198725 Completed 12/15/2019 Leidy Oneill MD Attn: Accounting, [address] [facility], [place], [address] [place] [address], [facility] - [facility] 0 09:32:07 Mixed urinary incontine nce 059258555 Completed 12/15/2019 Leidy Oneill MD Attn: Accounting, [address] [facility], [place], [address] [place] [address], [facility] - [facility] 0 09:31:37 Menopausa l syndrome 817613485 Active Not Available [facility] 0 12:22:35 Anxiety 03487497 Active Not Available [facility] 0 12:22:35 Angiotens in-conver ting-enzy me inhibitor adverse reaction 351512114 Completed 12/15/2019 Leidy Oneill MD Attn: Accounting, [address] [facility], [place], [address] [place] [address], [facility] - [facility] 0 09:31:20 Menopausa l flushing 760638664 Active Not Available [facility] 0 12:22:35 Problem Notes None recorded. Procedures Surgical History Date Name Laterality Status Provider Name and Address Organization Details Recorded Time 09/14/19 15 Endometrial Biopsy completed Zoey Mathew WILLI-BC Attn: Accounting,[address] [facility], [place], [place], [address] [place] [address], [facility] - [facility] 09/13/2014 10:08:24 03/18/19 15 Total hysterectomy completed Irina Jackson APN, JACKER-C Attn: Accounting,[address] [facility], [place], [address] [place] [address], [facility] - [facility] 09/14/2020 11:10:28 06/25/19 13 Date of Last Pap Smear completed Magdalena Gonzalez [place] - [facility] 09/07/2014 16:18:53 Tubal Ligation completed Magdalena Gonzalez [place] - [facility] 09/07/2014 16:28:57 Imaging Results Imaging Date Name Status LastModified by Organiz ation Details LastModified Time 03/10/2024 MAMMO, screening, digital, bilateral completed [facility] [address] [place], [address], 03/19/2024 13:25:24 04/21/2024 MAMMO, screening, digital, bilateral completed [facility] (Radiology) [address] [place], [address], 04/29/2024 11:46:34 Procedure Notes None recorded. Medical Equipment None Reported. Allergies Allergen ID Allergen Name Allergen Category Reaction Reaction Severity Criticality Documentation Date Start Date Code Code System Note Provider Name and Address Organization Details Recorded Time 49344 Penicilli n Not available hives Not available Not available 09/07/2014 96665 RxNorm unkno wn but can deriv ative s Not Available Not Available Not Available 56858 doxycycli ne Not available hives vomiting Not available Not available Not available 09/07/2014 3640 RxNorm Not Available Not Available Not Available 49481 lisinopri l medicatio n cough Not available Not available 07/15/2015 65861 RxNorm Not Available Not Available Not Available 61995 amlodipin e medicatio n edema Not available Not available 08/12/2015 25227 RxNorm Not Available Not Available Not Available Medications Name Sig Start Date Stop Date Status Note LastModified by Organization Details LastModified Time cyclobenz aprine 10 mg tablet TAKE 1 TABLET BY MOUTH EVERY 8 HOURS NEEDED active Not Available Not Available No t Available fluconazo le 100 mg tablet 06/25 completed Not Available Not Available Not Available buspirone 5 mg tablet TAKE 1 TABLET TWICE A DAY 06/03 completed Not Available Not Available Not Available Colace 100 mg capsule Take 1 capsule twice a day by oral route. 2014 active Not Available Not Available Not Avai lable prednison e 10 mg tablet TAKE 1 TABLET BY MOUTH EVERY DAY active Not Available Not Available No t Available tizanidin e 2 mg tablet Take 1 tablet twice a day by oral route as needed. 12/14 completed Not Available Not Available Not Available clindamyc in HCl 300 mg capsule TAKE ONE CAPSULE BY MOUTH FOUR TIMES DAILY UNTIL ALL TAKEN 03/07 completed Not Available Not Available Not Available albuterol sulfate 2.5 mg/3 mL (0.083 %) solution for nebulizat ion INHALE 3 ML BY NEBULIZA TION THREE TIMES A DAY NEEDED 12/[address] Andrade Not Available Not Available Not Available azithromy demian 250 mg tablet TAKE 2 TABLETS BY MOUTH TODAY, THEN TAKE 1 TABLET DAILY FOR 4 DAYS DIRECTED 02/26 completed Not Available Not Available Not Available ibuprofen 800 mg tablet Take 1 tablet 3 times a day by oral route. active Not Available Not Available No t Available benzonata te 200 mg capsule TAKE 1 CAPSULE BY MOUTH THREE TIMES A DAY 11/22 completed Not Available Not Available Not Available valacyclo vir 1 gram tablet 05/22 completed Not Available Not Available Not Available hydrocodo ne 5 mg-acetam inophen 325 mg tablet TAKE 1 TABLET BY MOUTH EVERY 4 TO 6 HOURS NEEDED FOR PAIN 07/19 completed Not Available Not Available Not Available promethaz ine 6.25 mg/5 mL oral syrup TAKE 5 ML BY MOUTH 4 TIMES A DAY NEEDED 07/19 completed Not Available Not Available Not Available atovaquon e 250 mg-progua nil 100 mg tablet 08/13 completed Not Available Not Available Not Available prednison e 20 mg tablet Take 3 tablets by mouth x 2 days, then take 2 tablets by mouth x 2 days then take 1 tablet by mouth x 2 days 02/20 completed Not Available Not Available Not Available lidocaine 4 % topical cream Apply by topical route to affected area as need for pain 2014 active Not Available Not Available Not Avai lable phentermi ne 15 mg capsule TAKE 1 CAPSULE BY MOUTH EVERY DAY 07/28 completed Not Available Not Available Not Available clindamyc in HCl 150 mg capsule 06/25 completed Not Available Not Available Not Available hydroxyzi ne HCl 50 mg tablet Take 1 tablet 4 times a day by oral route as needed. 06/25 completed Not Available Not Available Not Available acetamino phen 300 mg-codein e 30 mg tablet TAKE 1 TABLET BY MOUTH EVERY 6 HOURS NEEDED 02/01 completed Not Available Not Available Not Available ciproflox acin 500 mg tablet Take 1 tablet every 12 hours by oral route. active Not Available Not Available No t Available sulfameth oxazole 800 mg-trimet hoprim 160 mg tablet Take 1 tablet every 12 hours by oral route for 7 days. active Not Available Not Available No t Available tramadol 50 mg tablet 12/30 completed 12/31/19 20-pt states ER gave to her she is not taking she is taking tylenol Not Available Not Available Not Available phentermi ne 30 mg capsule Take 1 capsule every day by oral route. 05/07 completed Not Available Not Available Not Available meloxicam 7.5 mg tablet Take 1 tablet every day by oral route with meals. 12/30 completed 12/30/21 0-pt states this is gone and she is going to PT and ortho Not Available Not Available Not Available estradiol 1 mg tablet Take 1 tablet every day by oral route as directed . 11/26 completed last fill Not Available Not Available Not Available amlodipin e 10 mg tablet Take 1 tablet every day by oral route for 90 days. active Not Available Not Available No t Available benzonata te 100 mg capsule Take 1 capsule twice a day by oral route as needed. 08/13 completed Not Available Not Available Not Available pantopraz ole 40 mg tablet,de layed release Take 1 tablet every day by oral route. 06/25 completed Not Available Not Available Not Available fluoxetin e 10 mg capsule Take 1 capsule every day by oral route. active Not Available Not Available No t Available gabapenti n 300 mg capsule Take 1 capsule twice a day by oral route as needed. 09/[address] Hardy Not Available Not Available Not Available aspirin 81 mg chewable tablet CHEW 1 TABLET DAILY 12/14 completed Not Available Not Available Not Available monteluka st 10 mg tablet TAKE 1 TABLET DAILY active Not Available Not Available No t Available hydroxyzi ne HCl 25 mg tablet Take 1 capsule by mouth four times daily PRN 08/13 completed Not Available Not Available Not Available codeine 10 mg-guaife nesin 100 mg/5 mL oral liquid Take 10 mL every 4 hours by oral route as needed. 06/03 completed Not Available Not Available Not Available lisinopri l 5 mg tablet Take 1 tablet every day by oral route. active Not Available Not Available No t Available hydrochlo rothiazid e 25 mg tablet TAKE 1 TABLET DAILY active Not Available Not Available No t Available mupirocin 2 % topical ointment APPLY A SMALL AMOUNT TO THE AFFECTED AREA BY TOPICAL ROUTE 3 TIMES PER DAY 06/25 completed Not Available Not Available Not Available diclofena c sodium 50 mg tablet,de layed release Take 1 tablet twice a day by oral route. 2024 active Not Available Not Available Not Avai lable metoprolo l succinate ER 25 mg tablet,ex tended release 24 hr TAKE 1 TABLET DAILY active Not Available Not Available No t Available levofloxa demian 500 mg tablet 06/03 completed Not Available Not Available Not Available methylpre dnisolone 4 mg tablets in a dose pack TAKE 1 DOSE PACK BY MOUTH DIRECTED 02/26 completed Not Available Not Available Not Available albuterol sulfate HFA 90 mcg/actua tion aerosol inhaler INHALE 2 PUFFS BY MOUTH EVERY 4 HOURS NEEDED FOR WHEEZE active Not Available Not Available No t Available Vitamin D2 1,250 mcg (50,000 unit) capsule TAKE 1 CAPSULE EVERY WEEK 06/25 completed Not Available Not Available Not Available cefdinir 300 mg capsule TAKE 1 CAPSULE BY MOUTH EVERY 12 HOURS FOR 5 DAYS 07/19 completed Not Available Not Available Not Available fluticaso ne propionat e 50 mcg/actua tion nasal spray,[place] 1 spray twice a day by intranas al route. active Not Available Not Available No t Available naproxen 500 mg tablet Take 1 tablet every day by oral route as needed. 08/13 completed Not Available Not Available Not Available hydroxyzi ne pamoate 25 mg capsule Take 1 capsule 4 times a day by oral route as needed. 2018 active Not Available Not Available Not Avai lable Medroxy 10 mg tablet active Not Available Not Available Not Available Typhim Vi 25 mcg/0.5 mL intramusc ular syringe 06/25 completed Not Available Not Available Not Available escitalop emiliano 5 mg tablet TAKE 1 TABLET BY MOUTH EVERY DAY 04/07 completed Not Available Not Available Not Available Vesicare 5 mg tablet Take 1 tablet every day by oral route. 2014 active Not Available Not Available Not Avai lable Tylenol 03/07 completed Not Available Not Available Not Available Fish Oil 300 mg-1,000 mg capsule Take 1 capsule every day by oral route at dinner for 90 days. 12/30 completed 12/31/19 20-pt states she is not taking Not Available Not Available Not Available Vaqta (PF) 50 unit/mL intramusc ular syringe 06/25 completed Not Available Not Available Not Available budesonid e 1 mg/2 mL suspensio n for nebulizat ion INHALE 2 ML 4 TIMES A DAY BY NEBULIZA TION ROUTE FOR 30 DAYS. INSRUANC E PAYS FOR TWICE A DAY active Not Available Not Available No t Available fenofibra te 54 mg tablet TAKE 1 TABLET DAILY 12/14 completed Not Available Not Available Not Available Dulera 200 mcg-5 mcg/actua tion HFA aerosol inhaler Inhale 2 puffs twice a day by inhalati on route 06/25 completed Not Available Not Available Not Available Brooke 0.35 mg tablet TAKE 1 TABLET DAILY active Not Available Not Available No t Available Qvar RediHaler 80 mcg/actua tion HFA breath activated aerosol USE 2 INHALATI ONS TWICE A DAY 06/03 completed Not Available Not Available Not Available Wixela Inhub 250 mcg-50 mcg/dose powder for inhalatio n USE 1 INHALATI ON ORALLY IN THE MORNING AND AT BEDTIME active Not Available Not Available No t Available Fluzone Quad (PF) 60 mcg (15 mcg x 4)/0.5 mL IM syringe 12/23 completed Not Available Not Available Not Available Vitals Date Recorded Body height Body mass index (BMI) Body weight Oxygen saturation Oxygen saturation in Arterial blood by Pulse oximetry Heart rate Respiratory rate Body temperature Systolic blood pressure Diastolic blood pressure Provider Name and Address Organization Details Last Updated DateTime 3 157.48 cm 29.3 kg/m2 46618.7 8 g 96 % 96 % 88 /min 16 /min 97.1 [degF] 122 mm[Hg] 78 mm[Hg] Suyapa Helms [place] - [facility] 3 08:52:32 Date Recorded Body height Body mass index (BMI) Body weight Oxygen saturation Oxygen saturation in Arterial blood by Pulse oximetry Heart rate Respiratory rate Body temperature Systolic blood pressure Diastolic blood pressure Provider Name and Address Organization Details Last Updated DateTime 4 157.48 cm 31.1 kg/m2 21007.7 g 98 % 98 % 80 /min 16 /min 98 [degF] 140 mm[Hg] 90 mm[Hg] LOULOU Mayberry [facility] 4 08:49:13 Date Recorded Systolic blood pressure Diastolic blood pressure Provider Name and Address Organization Details Last Updated DateTime 06/04/2023 132 mm[Hg] 82 mm[Hg] Irina Jackson APN, JACKER-C Attn: Accounting,[address] [place], [address], [facility] 06/04/2023 09:29:13 Date Recorded Body height Body mass index (BMI) Body weight Oxygen saturation Oxygen saturation in Arterial blood by Pulse oximetry Heart rate Respiratory rate Body temperature Systolic blood pressure Diastolic blood pressure Provider Name and Address Organization Details Last Updated DateTime 4 157.48 cm 30.3 kg/m2 49907.9 7 g 98 % 98 % 95 /min 16 /min 97.5 [degF] 137 mm[Hg] 84 mm[Hg] Lizy Alcantar MA [facility] 4 16:37:18 Date Recorded Body height Body mass index (BMI) Body weight Oxygen saturation Oxygen saturation in Arterial blood by Pulse oximetry Heart rate Respiratory rate Body temperature Systolic blood pressure Diastolic blood pressure Provider Name and Address Organization Details Last Updated DateTime 5 157.48 cm 30.5 kg/m2 83939.4 8 g 96 % 96 % 94 /min 16 /min 97.5 [degF] 127 mm[Hg] 84 mm[Hg] Jerica Singh MA [facility] 5 16:31:20 Social History Question Answer Notes LastModified by Organizat ion Details LastModified Time Tobacco Smoking Status Current Every Day Smoker Magdalena beard, [facility] 09/07/2014 16:20:02 Do You Have An Advance Directive? No Information not available 12/31/2019 What Is Your Level Of Alcohol Consumption? Occasional Information not available 12/07/2014 Are You Blind Or Do You Have Difficulty Seeing? No Information not available 09/14/2020 What Is Your Level Of Caffeine Consumption? Moderate Coffee Information not available 02/01/2022 How Much Tobacco Do You Chew? None Information not available 12/31/2019 In The 14 Days Before Symptom Onset, Have You Had Close Contact With A Laboratory-confir med COVID-19 While That Case Was Ill? No Information not available 12/31/2019 In The 14 Days Before Symptom Onset, Have You Had Close Contact With A Person Who Is Under Investigation For COVID-19 While That Person Was Ill? No Information not available 12/31/2019 Have You Been To An Area Known To Be High Risk For COVID-19? No [email or web address] Information not available 04/07/2021 Are You Currently Employed? Yes [email or web address] Information not available 03/07/2021 Are You Deaf Or Do You Have Serious Difficulty Hearing? No Information not available 09/14/2020 What Type Of Diet Are You Following? REGULAR Information not available 12/31/2019 Which Illicit Or Recreational Drugs Have You Used? Denied Information not available 12/31/2019 Do You Or Have You Ever Used E-cigarettes Or Vape? Never Used Electronic Cigarettes [email or web address] Information not available 04/13/2019 Education 12 Information no t available 12/31/2019 What Is Your Occupation? [employer] Information not available 12/31/2019 Are There Any Guns Present In Your Home? Yes Information not available 12/31/2019 Hard Of Hearing Or Deaf In One Or Both Ears? No Information not available 12/31/2019 Legally Blind In One Or Both Eyes? No Information no t available 12/31/2019 Marital Status Informatio n not available 12/07/2014 What Was The Date Of Your Most Recent Tobacco Screening? 05/07/2024 Information not available 05/07/2024 Performs Monthly Self-breast Exam? Yes Information no t available 12/31/2019 What Is Your Relationship Status? Information not available 09/14/2020 Do You Use Your Seat Belt Or Car Seat Routinely? Yes Information not available 09/14/2020 Seat Belts Used Routinely Yes Information not available 12/31/2019 Smoke Alarm In Home Yes Information not available 12/31/2019 Do You Have Smoke And Carbon Monoxide Detectors In Your Home? Yes Information not available 09/14/2020 At What Age Did You Start Smoking Tobacco? 17 Information not available 12/31/2019 Are You Passively Exposed To Smoke? No Information no t available 09/14/2020 Do You Or Have You Ever Used Smokeless Tobacco? Never Used Smokeless Tobacco klorts Information not available 04/13/2019 How Much Tobacco Do You Smoke? 1 PPD [email or web address] Information not available 10/20/2014 General Stress Level Low Information not available 12/31/2019 Do You Feel Stressed (tense, Restless, Nervous, Or Anxious, Or Unable To Sleep At Night)? [id number] Information not available 02/01/2022 Do You Use Any Illicit Or Recreational Drugs? No Information not available 06/04/2023 Do You Use Sunscreen Routinely? Yes Information not available 12/31/2019 Has Tobacco Cessation Counseling Been Provided? Yes [email or web address] Information not available 07/28/2021 On What Date Was Tobacco Cessation Counseling Provided? 02/27/2024 [email or web address] Information not available 02/27/2024 How Many Years Have You Smoked Tobacco? 33 06/04/23 Information not available 06/04/2023 Do You Or Have You Ever Used Any Other Forms Of Tobacco Or Nicotine? No Information not available 09/14/2020 Sex: Female Functional Status Question Answer Note LastModified by Organization D etails LastModified Time Are you able to care for yourself? Yes Information n ot available 09/14/2020 What is your exercise level? None Information not available 12/31/2019 Mental Status None recorded. Family History Relationship Description Onset Age of this Age Resolved Age Notes LastModified by Organization Details LastModified Time Mother Hypertensive disorder [email or web address] Not available 2015 12:35:25 Mother Malignant tumor of breast [email or web address] Not available 2015 12:35:25 Mother Malignant neoplasm of uterus [email or web address] Not available 2015 12:35:25 Mother Diabetes mellitus [email or web address] Not available 2015 12:35:25 Mother Hypertensive disorder [email or web address] Not available 2015 12:35:25 Mother Migraine [email or web address] Not availabl e 10/17/2015 12:35:25 Sister Malignant neoplasm of uterus [email or web address] Not available 2015 12:35:25 Medical History Condition Response Coronary Artery Disease N Other N Atrial Fibrillation N High Blood Pressure Y Breast Cancer N Blood Clots N COPD Y Depression N Lung Disease N Breast Problem N Anesthesia Complications N Headaches/Migraines N Anxiety Disorder N Muscle, Joint, or Bone Problems N Arthritis N Polyps N Infertility N Acid Reflux (GERD) N Cancer N Stroke N ADHD N Endometriosis N High Cholesterol Y Liver Disease N Fibromyalgia N Headaches N Kidney Disease N Heart Problems N Thyroid Problems N Kidney or Bladder Problems N GI Problems N Acne N Skin Problems N Eating Disorder N Anemia N Heart Attack (MT) N Ovarian Cancer N Diabetes N Blood Transfusions N Seizures/Epilepsy N Abuse/Domestic Violence N Asthma N Allergies N Substance Abuse N Hepatitis N Heart Disease N Pre-Eclampsia N Hypertension N Osteoporosis N Heart Failure N Gynecological History Statement/Question Response Abnormal Pap Y Date of Last Mammogram STIs/STDs N HPV Vaccine N Duration of Flow (days) Most Recent Mammogram Current Control Method Hysterectom y Age at First Child 19 Sexually Active? Y Menses Monthly N Date of Last Pap Smear 06/24/2012 Sexual Problems? N LMP Approximate Obstetrics History GPAL:G 2 P 1 1 0 2 Type Value Full Term 1 Premature 1 Living 2 Total 2 Immunizations Vaccine Type Date Status Note Provider Nam e and Address Organization Details Recorded Time Influenza, split virus, quadrivalent, preservative 9 completed Irina Jackson APN, FNP-C Attn: [address]ing[address] [place], [address], [facility] 02/02/2022 15:58:50 Influenza, split virus, quadrivalent, preservative 0 completed Irina Jackson APN, FNP-C Attn: Accounting[address] [place], [address], [place] [facility] 02/02/2022 15:57:27 Influenza, split virus, quadrivalent, preservative 0 completed Irina Jackson, QA AUTOMATION DEVELOPER, JACKER-C Attn: Accounting,[address] [facility], [place], [place], [address] [place] [address], [place] [facility] 02/02/2022 15:58:49 COVID-19, mRNA, LNP-S, PF, 30 mcg/0.3 mL dose 1 completed Irina Jackson, QA AUTOMATION DEVELOPER, JACKER-C Attn: Accounting,[address] [facility], [place], [place], [address] [place] [address], [place] [facility] 02/02/2022 15:58:49 Influenza, split virus, quadrivalent, PF 0 completed Irina Jackson, QA AUTOMATION DEVELOPER, JACKER-C Attn: Accounting,[address] [facility], [place], [place], [address] [place] [address], [place] [facility] 02/02/2022 15:58:50 COVID-19, mRNA, LNP-S, PF, 30 mcg/0.3 mL dose 1 completed Irina Jackson, QA AUTOMATION DEVELOPER, JACKER-C Attn: Accounting,[address] [facility], [place], [place], [address] [place] [address], [place] [facility] 02/02/2022 15:58:50 Influenza, split virus, trivalent, PF 7 completed Irina Jackson, QA AUTOMATION DEVELOPER, JACKER-C Attn: Accounting,[address] [facility], [place], [place], [address] [place] [address], [place] [facility] 06/04/2023 09:53:09 Tdap 7 completed Not Available [facility] 04/04/2019 02:43:10 Hep A-Hep B 9 completed Not Available [facility] 04/04/2019 02:37:39 Hep B, adult 9 completed Not Available [facility] 04/04/2019 02:51:08 Hep B, adult 0 completed Beto Bolton RN [facility], [place] [facility] 04/27/2019 16:14:24 COVID-19, mRNA, LNP-S, PF, 30 mcg/0.3 mL dose 2 completed Jerica Singh [place], [place] [facility] 04/07/2021 15:57:57 COVID-19, mRNA, LNP-S, PF, 30 mcg/0.3 mL dose, kadie-sucrose 2 completed Jerica Singh [place], [place] [facility] 08/10/2021 10:59:33 Influenza, split virus, quadrivalent, preservative 6 completed Irina Jackson, QA AUTOMATION DEVELOPER, JACKER-C Attn: Accounting,[address] [facility], [place], [address], [place] [facility] 02/02/2022 15:57:27 Pneumococcal conjugate PCV20, polysaccharide [id number] conjugate, adjuvant, PF 3 completed Irina Jackson, QA AUTOMATION DEVELOPER, JACKER-C Attn: Accounting,[address] [facility], [place], [address], [place] [facility] 07/19/2022 16:26:00 Influenza, split virus, quadrivalent, PF 3 completed Suyapa Helms [place], [place] [facility] 12/06/2022 15:58:08 Influenza, split virus, trivalent, preservative 4 completed Irina Jackson, QA AUTOMATION DEVELOPER, JACKER-C Attn: Accounting,[address] [facility], [place], [address], [place] [facility] 03/05/2024 17:34:35 typhoid, ViCPs 7 completed Irina Jackson, QA AUTOMATION DEVELOPER, JACKER-C Attn: Accounting,[address] [facility], [place], [address], [place] [facility] 02/02/2022 15:57:27 Hep A, adult 7 completed Irina Jackson, QA AUTOMATION DEVELOPER, JACKER-C Attn: Accounting,[address] [place], [address], [place] [facility] 02/02/2022 15:57:27 Past Encounters Encounter ID Performer Location Encounter Start Date Encounter Closed Date Diagnosis/Indication Diagnosis SNOMED-CT Code Diagnosis ICD10 Code Diagnosis Note [id number] KAIA Wilson ([facility] 122) [address] [place] [address] 09/07/2014 16:15:44 09/07/2014 17:02:53 Dysfunctional uterine bleeding [id number] Nuzhat Castelan ([facility] 122) [address] [place] [address] 09/13/2014 08:52:03 09/14/2014 12:41:37 Dysfunctional uterine bleeding [id number] KAIA Wilson ([facility] 122) [address] [place] [address] 10/20/2014 14:35:31 10/20/2014 15:31:56 Dysfunctional uterine bleeding 86929804 Disturbance in mood 88573298 [id number] Taj Castelan ([facility] 122) [address] [place] [address] 11/03/2014 10:04:36 11/03/2014 12:05:39 Pre-surgery evaluation [id number] Hypertensive disorder 24304981 [id number] Zoey Mathew [facility] Nuzhat Castelan ([facility] 122) [address] [place] [address] 11/17/2014 14:24:41 11/23/2014 11:19:16 Hypertensive disorder 34249192 Dysfunctio nal uterine bleeding 88660175 [id number] KAIA Wilson ([facility] 122) [address] [place] [address] 12/02/2014 11:21:03 12/03/2014 10:59:21 Postoperative visit 946116611 Constipation 65228834 Urinary tr act infectious disease 39351986 [id number] [facility] [place] [address] [place] [address] 12/07/2014 16:42:58 12/07/2014 17:38:34 Chronic obstructive pulmonary disease 75186983 Tobacco user 627759707 Upper resp iratory infection 75465857 [id number] Taj Castelan ([facility] 122) [address] [place] [address] 12/20/2014 15:03:10 12/21/2014 11:19:58 Postoperative visit 995827035 Z09 Urinary tr act infectious disease 34475919 N39.0 Folliculitis 91236196 L7 3.9 Abnormal urine 890284626 R82.90 [id number] Sierra Pagan [facility] ([facility] 122) [address] [facility] [place] [address] 01/17/2015 14:31:55 01/17/2015 16:49:51 Postoperative visit 423560961 Z09 Mixed urin julian incontinence 398701342 N39.46 [id number] Adiel Chou [facility] [address] [place] [address] 03/08/2015 16:26:33 03/08/2015 17:38:04 Chronic obstructive pulmonary disease 80165523 J44.9 Tobacco user 480458645 Z 72.0 [id number] Zoey Mathew [facility] Nuzhat Womenmichael ([facility] 122) [address] [facility] [place] [address] 06/01/2015 16:19:29 06/02/2015 11:29:19 Menopausal syndrome 805670030 N95.9 [id number] Zoey Mathew [facility] Nuzhat Womenmichael ([facility] 205) [address] [facility] [place] [address] 06/03/2015 13:47:16 06/03/2015 17:06:06 Hypertensive disorder 87515855 I10 Chronic ob structive pulmonary disease 71250518 J44.9 [id number] PRICILLA Mcknight ([facility] 205) [address] [facility] [place] [address] 07/15/2015 15:32:17 07/18/2015 10:01:18 Hypertensive disorder 67591226 I10 Anxiety 45944931 F41.1 Angiotensi n-convertin g-enzyme inhibitor adverse reaction 951282146 T46.4X5A [id number] PRICILLA Mcknight ([facility] 205) [address] [facility] [place] [address] 08/12/2015 15:38:14 08/12/2015 18:08:08 Hypertensive disorder 86154751 I10 has enough to get her through the next month for HCTZ [id number] PRICILLA Mcknight ([facility] 205) [address] [place] [address] 09/05/2015 16:25:49 09/05/2015 17:21:57 Hypertensive disorder 37366989 I10 [id number] PRICILLA Mcknights ([facility] 205) [address] [place] [address] 10/10/2015 16:23:25 10/11/2015 11:52:44 Hypertensive disorder 80573815 I10 [id number] Zoey Mathew [facility] ([facility] 122) [address] [facility] [address] 10/17/2015 12:29:24 10/17/2015 14:38:58 Menopausal flushing 744398170 N95.1 [id number] PRICILLA Mcknight ([facility] 205) [address] [place] [address] 01/09/2016 08:48:17 01/09/2016 15:21:32 Hypertensive disorder 02147940 I10 Counseled on HTN and medication . Encouraged to monitor blood pressures with goal <140/90. Encouraged healthy diet and exercise. Counseled on smoking cessation. Chronic ob structive pulmonary disease 94958446 J44.9 Encouraged smoking cessation- Counseled on COPD and medication s and the importance of compliance , PFT to be done Tobacco de pendence syndrome 60787283 F17.290 Counseled on smoking cessation Upper resp iratory infection 31749105 J06.9 Warm salt water gargles, rest, increase fluids. Over the counter Muccinex. Tylenol/Ib uprofen for pain/fever , humidifier in the house. Use albuterol nebulizer every 6 hours as needed, return for worsening or new concerns [id number] PRICILLA Mcknight ([facility] 205) [address] [place] [address] 06/04/2016 15:19:23 06/05/2016 09:38:44 Adult health examination 468491978 Z00.00 Counseled on the importance of healthy diet and exercise for weight loss. Fasting lab work. Advised adequate calcium intake through dairy and dark leafy vegetables . Adequate hydration and decrease soda intake. Advised on immunizati ons-given Tdap today Chronic ob structive pulmonary disease 02326826 J44.9 Counseled on COPD and medication s and the importance of compliance -will continue current medication s as prescribed -advise smoking cessation Hypertensive disorder 38 703740 I10 Counseled on HTN and medication -if BP at home worsens or stays consistent ly >140/90 will increase medication -patient advised stress management . Encouraged healthy diet and exercise. Counseled on smoking cessation. Generalize d anxiety disorder 28615149 F41.1 Counseled on anxiety and medication . Encouraged to call for counseling , numbers given. Advised importance of stress reduction- walking, meditation , yoga. Encouraged to seek out help from loved ones and friends to help manage home life. [facility] pals y of left side of face [id number] 6877967 G51.0 will finish medication s as RX'd from ER Overweight 870775147 E66 .3 HIV screening 316042503 Z11.4 Administra tion of diphtheria, pertussis, and tetanus vaccine 201550135 Z23 Tobacco de pendence syndrome 18643845 F17.290 Counseled on smoking cessation Renewal of prescription 896287270 Z76.0 Lesion of nasal mucosa 939450091 J34.89 [id number] PRICILLA Mcknight ([facility] 205) [address] [place] [address] 10/22/2016 08:21:21 10/22/2016 15:13:54 Persistent cough 426603949 R05 Counseled on cough and differenti als-due to inhalation of noxious fumes with history of COPD and no improvemen t will send to pulmonolog y for evaluation -prednison e taper dose-Zari tu laura during day and Rachell n at bedtime-wi ll do chest x-ray-cont inue Flonase, OTC claritin and home COPD medication s Bronchitis due to fumes AND/OR vapors 41650648 J68.0 Chronic ob structive pulmonary disease 44366272 J44.9 Counseled on COPD and medication s and the importance of compliance -will continue current medication s as prescribed -advise smoking cessation [id number] PRICILLA Mcknight ([facility] 205) [address] [place] [address] 12/11/2016 08:31:35 12/11/2016 14:11:09 Anxiety 78949934 F41.1 Will continue to use hydroxizin e (has) as needed-ret urn for any worsening of s/s Essential hypertension 91584515 I10 Counseled on HTN and medication -if BP at home worsens or stays consistent ly >140/90-wi ll set f/u after returning [place] [employer] due to taking cough medication -recommend using Coricidan HBP. Encouraged healthy diet and exercise. Counseled on smoking cessation. Sensation of foreign body in throat 0222899958 45815 R09.89 Will refer to ENT-and start medication for GERD Environmental allergy 42 0983387 T78.49XA Counseled on allergies and starting medication -will continue Claritin and Flonase daily. Decongesta nt as needed. Stay away from triggers. Shower after being outside. Saline nasal wash as needed. [id number] KAIA Naik ([facility] 205) [address] [facility] [address] [place] [address] 06/25/2017 13:53:16 06/26/2017 15:13:19 Upper respiratory infection 81025330 J06.9 Counseled on URI/sore throat-War m salt water gargles, rest, increase fluids. Over the counter Coricidan Hbp. Tylenol/Ib uprofen for pain/fever , humidifier in the house. Use albuterol nebulizer every 6 hours as needed, return for worsening or new concerns [id number] PRICILLA Mcknight 14 IM [address] [facility] [address] [place] [address] 09/11/2017 08:49:35 09/13/2017 10:28:20 Acute exacerbation of chronic obstructive pulmonary disease 487706044 J44.1 Counseled on COPD and medication s and the importance of compliance -will continue current medication s as prescribed -advise smoking cessation Chronic ob structive pulmonary disease 45026199 J44.9 Body mass index 25-29 - overweight 815253789 Z68.27 [id number] PRICILLA Mcknight 14 IM [address] [facility] [address] [place] [address] 01/20/2018 16:12:58 01/23/2018 16:36:21 Hypersomnia 32141029 G47.10 Counseled on hypersomni a and referral to sleep medicine. Advised healthy diet and exercise-3 0 minutes every day. Chronic ob structive pulmonary disease 00294070 J44.9 continue care with pulmonolog y [id number] PRICILLA Mcknight 14 IM [address] [place] [address] 07/01/2018 08:31:34 07/02/2018 09:56:46 Upper respiratory infection 17097695 J06.9 Counseled on URI/sore throat-War m salt water gargles, rest, increase fluids. Over the counter Coricidan Hbp. Tylenol/Ib uprofen for pain/fever , humidifier in the house. Use albuterol nebulizer every 6 hours as needed, return for worsening or new concerns Call office in 1 week if no improvemen t [id number] PRICILLA Mcknight 14 [address] [place] [address] 10/20/2018 08:53:35 10/21/2018 10:06:00 Health examination of sub-group 783546677 Z00.8 Will do titers on immunizati ons that can be done here-all others will need to be done by health department [id number] PRICILLA Mcknight 14 [address] [facility] [place] [address] 10/23/2018 08:57:03 10/24/2018 09:45:50 Active or passive immunization 106555120 Z23 verbal order [id number] PRICILLA Mcknight 14 [address] [place] [address] 11/24/2018 09:02:36 11/26/2018 10:19:56 Active or passive immunization 883932514 Z23 verbal order [id number] PRICILLA Mcknight 14 [address] [facility] [address] 04/13/2019 14:18:39 04/14/2019 12:02:45 Adult health examination 004708285 Z00.00 Worried well 64675774 Z7 1.1 NO s/s at present-wi ll stay home till next Saturday-may return to work at that time [id number] Beto Bolton RN N[facility] 14 IM [address] [place] [place] [address] 04/27/2019 15:41:30 04/28/2019 16:46:53 [id number] MD Nuzhat Maharaj 14 IM [address] [facility] [address] [place] [address] [address] 08/14/2019 09:56:48 08/17/2019 15:40:20 Spasm of back muscles 985210317 M62.830 L/buttock area s/p lifting 4 yr old and turning herself 1 wk ago- probably piriformis spasmStret prakash Moist heat. Meloxicam ++ tizanidine PRNIf no better /worsening call vs refer for PT Essential hypertension 64547602 I10 Clinically feels wellLow salt diet Hypertriglyceridemia 302 835795 E78.1 Recommend to cutback sugary stuff. On fenofibrat e per the last PCPWill do labs by next visit Chronic ob structive pulmonary disease 15919014 J44.9 Under care by Tobacco de pendence syndrome 91428782 F17.200 Recommend to slow down and quit at the earliest- 1 PPD Long-term drug therapy 862313032 Z79.899 Adult [facility] th examination 897356356 Z00.00 recommend to f/u with Meter Supervisor for routine PAP , wants referral Screening mammography 24 500212 Z12.31 Mom had breast CA [id number] MD Nuzhat Maharaj 14 IM [address] [facility] [address] [place] [address] 12/15/2019 08:06:13 12/16/2019 19:30:24 Essential hypertension 86209036 I10 Clinically feels wellLow salt diet Chronic ob structive pulmonary disease 02492031 J44.9 Under care by Tobacco de pendence syndrome 34034408 F17.200 Recommend to slow down and quit at the earliest- 1 PPD Obstructiv e sleep apnea syndrome 58548130 G47.33 On CPAP per Long-term drug therapy 517410770 Z79.899 Cervical radiculopathy 38329675 M54.12 L/sidedMoi st heat, Stretching exerciseX ray & PTRecommen d stop smoking. 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 Essential hypertension 90843129 I10 stable, cont hctz 25 mg, metoprolol ER 25 mg Hypertriglyceridemia 302 146339 E78.2 reviewed labs with pt, diet changes and fish oil advised [id number] WILLI Carr [address] [place] [address] 01/06/2020 09:48:11 01/07/2020 14:37:53 Viral screening 912549318 Z11.59 D/w pt the current pandemic of COVID-19 and call for social isolation in order to blunt the curve and minimize risk and spread. Encouraged patient and family to take restrictio ns seriously. They have verbalized understand ing of such. Viral syndrome 605559450 B34.9 [id number] Irina Jackson APN, FNP-C [facility] (Adult Med) [address] [place] [address] 09/14/2020 09:16:36 09/14/2020 19:38:30 Tobacco user 674048326 Z72.0 Smoking cessation encouraged . 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, lost follow up as adult, with increased memory loss, will order MRIplan pendingno other neuro deficits at this time Poor short -term memory 232396271 R41.3 dwp referral to neuro pending MRI of brain,may be stress induced, work on stress mgmt, avoid medication s that may make you drowsy [id number] Irina Jackson APN, SUDEEP Vazquez (Adult Med) [address] [place] [address] 03/07/2021 15:50:28 03/15/2021 08:16:24 Essential hypertension 76242068 I10 stable, cont hctz 25 mg, metoprolol ER 25 mg Anxiety 47494489 F41.1 dw med options, will trial lexapro, but will start at 5 mgR/B/A/SE of antidepres jose medication discussed such as gastrointe stinal s/e, mood irritabili ty, Suicidal ideation, risk of parker. F/U in 3-4 weeks. Call with concerns and questions. Compliance with medication s and follow up care strongly recommende d. Call 911 or ER for crises. Overweight 138984919 E66 .3 advised low fat, low cholestero l diet, regular exercise and weight reduction. [id number] Irina Jackson APN, FNP-C [facility] (Adult Med) [address] [place] [address] 04/07/2021 08:35:44 04/10/2021 09:38:08 Anxiety 76748578 F41.1 dw med options, will trial lexapro, but will start at 5 mg- felt like a zombie so she weaned off,will trial buspar 5 mg- will rx for bid but dwp to start q hs and if needed may take prn during the day Call with concerns and questions. Compliance with medication s and follow up care strongly recommende d. Call 911 or ER for crises. [id number] [facility] [address] [place] [address] 04/07/2021 15:38:29 04/10/2021 09:40:13 Administration of SARS-CoV-2 mRNA vaccine 9714626059 Z23 [id number] Irina Jackson APN, SUDEEP Vazquez (Adult Med) [address] [place] [address] 07/28/2021 10:39:49 07/31/2021 10:41:40 Essential hypertension 29525372 I10 stable, cont hctz 25 mg, metoprolol ER 25 mgslightly raised as she had not been getting all of her meds from [facility] Tobacco de pendence syndrome 95299844 F17.200 Smoking cessation encouraged . Vitamin D deficiency 347 47378 E55.9 cont daily otc to maintain level Anxiety 82514620 F41.1 well controlled on buspar 5 mg, Overweight 625511216 E66 .3 advised low fat, low cholestero l diet, regular exercise and weight reduction. 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 Vitamin D deficiency 347 11909 E55.9 cont daily otc to maintain level Anxiety 05232965 F41.1 well controlled on buspar 5 mg, Overweight 686973323 E66 .3 advised low fat, low cholestero l diet, regular exercise and weight reduction. Chronic ob structive pulmonary disease 96670005 J44.9 cont f/u with Dr Andrade, debbie singulair, cont qvar and albuterolm ontelukast qd- takes seasonally keeps prednisone on hand for flare up, will refill as she just used her last pack Postviral cough 02984643 4 R05.3 dwp cough may linger, pt requested georgina sanchez, will send [id number] Irina Jackson APN, SUDEEP [facility] (Adult Med) [address] [place] [address] 06/07/2022 09:48:23 06/11/2022 09:37:00 Chronic obstructive pulmonary disease 03656585 J44.9 cont f/u with Dr Andrade, debbie snowulair, cont qvar and albuterolm ontelukast qd- takes seasonally keeps prednisone on hand for flare up, will refill as she just used her last pack Essential hypertension 98237281 I10 stable, cont hctz 25 mg, metoprolol ER 25 mglow salt diet Acute exac erbation of chronic obstructive pulmonary disease 831054908 J44.1 see pt case Acute otitis media 91738 03 H65.03 Arnaldo TM erythema and edema/bulg ing Overweight 255947350 E66 .3 advised low fat, low cholestero l diet, regular exercise and weight reduction. [id number] Irina Jackson APN, SUDEEP [facility] (Adult Med) [address] [place] [address] 07/19/2022 08:11:51 07/24/2022 10:04:01 Chronic obstructive pulmonary disease 07394024 J44.9 cont f/u with Dr Andrade, debbie perkinsir, cont qvar and albuterolm ontelukast qd- takes seasonally keeps prednisone on hand for flare up, will refill as she just used her last pack Essential hypertension 77956701 I10 stable, cont hctz 25 mg, metoprolol ER 25 mglow salt diet Overweight 819750199 E66 .3 advised low fat, low cholestero l diet, regular exercise and weight reduction. Vitamin D deficiency 347 12141 E55.9 cont daily otc to maintain level Tobacco de pendence syndrome 31399322 F17.200 Smoking cessation encouraged . Hypertriglyceridemia 302 475131 E78.2 reviewed labs with pt, diet changes and fish oil advised Prediabetes 479336202 R7 3.03 6.0 dwp diet changes Endocrine/ metabolic screening 695689389 Z13.228 Acute maxi llary sinusitis 22546213 J01.00 travelling to [place], will send zpack and georgina sanchez just in case, Postviral cough 49057569 4 R05.3 dwp cough may linger, pt requested tomekaangelajessee laura, will send Administra tion of pneumococcal vaccine 69179706 Z23 Screening for malignant neoplasm of colon 974255406 Z12.11 [id number] Irina Jackson APN, SUDEEP Vazquez (Adult Med) [address] [place] [address] 11/22/2022 08:31:17 11/26/2022 15:42:59 Essential hypertension 51875761 I10 stable, cont hctz 25 mg, metoprolol ER 25 mglow salt diet Chronic ob structive pulmonary disease 16657645 J44.9 cont f/u with Dr Andrade, cont singulair, cont qvar and albuterolm ontelukast qd- takes seasonally keeps prednisone on hand for flare up, will refill as she just used her last pack Overweight 181109375 E66 .3 advised low fat, low cholestero l diet, regular exercise and weight reduction. Vitamin D deficiency 347 37769 E55.9 cont daily otc to maintain level Tobacco de pendence syndrome 76726660 F17.200 Smoking cessation encouraged . 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, well balanced diet.form completed for work insurance [id number] Suyapa Vazquez (Adult Med) [address] [place] [address] 12/06/2022 15:45:42 12/12/2022 08:45:37 Administration of influenza vaccine 17947388 Z23 [id number] Irina Jackson APN, SUDEEP Vazquez (Adult Med) [address] [place] [address] 06/04/2023 08:27:07 06/05/2023 15:57:38 Essential hypertension 49240503 I10 stable, cont hctz 25 mg, metoprolol ER 25 mglow salt diet Chronic ob structive pulmonary disease 77875616 J44.9 cont f/u with Dr Andrade, debbie singulair, cont qvar and albuterolm ontelukast qd- takes seasonally keeps prednisone on hand for flare up, frequent travel Vitamin D deficiency 347 40552 E55.9 cont daily otc to maintain level Tobacco de pendence syndrome 70692192 F17.200 Smoking cessation encouraged . Hypertriglyceridemia 302 499838 E78.2 reviewed labs with pt, diet changes and fish oil advised Prediabetes 680785071 R7 3.03 6.0 dwp diet changes Allergic rhinitis 822124 04 J30.9 cont flonase Obstructiv e sleep apnea syndrome 93230693 G47.33 cont with pulmonary as planned Pain of ri ght shoulder joint 3542526125 1899505 M25.511 see pt case Travel-rel ated illness 7170606556 70675 R69 Obesity 717555250 E66.9 dwp weight mgmt options [id number] Irina Jackson APN, FNP-C [place] (Adult Med) [address] [place] [address] 02/27/2024 16:29:57 03/06/2024 10:14:39 Essential hypertension 57552787 I10 stable, cont hctz 25 mg, metoprolol ER 25 mglow salt diet Chronic ob structive pulmonary disease 26992100 J44.9 cont f/u with Dr Andrade, debbie perkinsir, cont qvar and albuterolm ontelukast qd- takes seasonally keeps prednisone on hand for flare up, will refill as she just used her last pack Overweight 134670511 E66 .3 advised low fat, low cholestero l diet, regular exercise and weight reduction. Vitamin D deficiency 347 60190 E55.9 cont daily otc to maintain level Tobacco de pendence syndrome 13179293 F17.200 Smoking cessation encouraged . 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, dental exams, well balanced diet.form completed for work insurance Administra tion of influenza vaccine 58896487 Z23 Health Concerns Section Related Observation LastModified by Organization Detai ls LastModified Time None Recorded Concern Status LastModified by Organization Details LastModified Time None Recorded Advance Directives Directive N: Payers Encounter Date Sequence Insurance Name Policy Number Policy Moreno Covered Member ID Moreno Member ID Guarantor Name 11/22/2022 1 [place] [id number] 3 Olesya Nixon Kern [id number] 11/22/2022 2 [employer] [id number] Olesya [facility] [id number] [facility] 12/06/2022 1 [place] [id number] 3 Olesya L Kern [id number] Olesya L [place] 12/06/2022 2 [employer] [id number] Olesya L Kern [id number] [facility] 06/04/2023 1 [place] [id number] 3 Olesya L Kern [id number] Olesya L Sumner 06/04/2023 2 [employer] [id number] Olesya L Kern [id number] Olesya L Kern 02/27/2024 1 [place] [id number] 3 Olesya L Kern [id number] Olesya L Sumner 02/27/2024 2 [employer] [id number] Olesya L Kern [id number] [facility] Notes Date Note Type Note Provider Name and Address Organization Details Recorded Time 11/22/2022 text/html COPDReported bypatient.Onset/Timing: intermittent Severity:not limiting Context:cigarette smoking (1 PPD)Notes:sees Dr Metcalf F/UReported bypatient.Associated Symptoms:no dizziness; no lightheadedness; no chest pain Lifestyle:regular exercise; limiting/avoiding salt Medications:taking medications as directed; no side effects from medicationNotes:has been out of med until yesterday, took this am,Obstructive Sleep Apnea F/UReported bypatient.Quality:no loud snoring Severity:does not limit daily activities Prior TreatmentCPAP (APAP 5/15) Prior opinionpulmonology ()Sinusitis/All ergyReported bypatient.Notes:Has been taking singulair OTC loratadine and nasal spray 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 Irina Jackson APN, FNP-C Attn: Accounting,[address] [place], [address], [facility] 01/09/2023 14:27:58 06/04/2023 text/html COPDReported bypatient.Onset/Timing: intermittent Severity:not limiting Context:cigarette smoking (1 PPD)Notes:sees Dr Metcalf F/UReported bypatient.Associated Symptoms:no dizziness; no lightheadedness; no chest pain Lifestyle:regular exercise; limiting/avoiding salt Medications:taking medications as directed; no side effects from medicationNotes:has been out of med until yesterday, took this am,Obstructive Sleep Apnea F/UReported bypatient.Quality:no loud snoring Severity:does not limit daily activities Prior TreatmentCPAP (APAP 5/15) Prior opinionpulmonology ()Sinusitis/All ergyReported bypatient.Notes:Has been taking singulair OTC loratadine and nasal spray 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 travel Irina Jackson APN, FNP-C Attn: Accounting,[address] [place], [address], [facility] 06/04/2023 09:56:47 02/27/2024 text/html COPDReported bypatient.Onset/Timing: intermittent Severity:not limiting Context:cigarette smoking (1 PPD)Notes:sees Dr AhmedHypertension F/UReported bypatient.Associated Symptoms:no dizziness; no lightheadedness; no chest pain Lifestyle:regular exercise; limiting/avoiding salt Medications:taking medications as directed; no side effects from medicationNotes:has been out of med until yesterday, took this am,Obstructive Sleep Apnea F/UReported bypatient.Quality:no loud snoring Severity:does not limit daily activities Prior TreatmentCPAP (APAP 07/30) Prior opinionpulmonology ()Sinusitis/All ergyReported bypatient.Notes:Has been taking singulair OTC loratadine and nasal spray 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 Irina Jackson APN, JACKER-C Attn: Accounting,[address] [place], [address], [facility] 03/05/2024 17:35:06 OBGyn Episode No OBEpisode recorded.
== END 2024-05-07 17:01 | disposition home or self-care (01) ==
PROVIDERS: PCP Nurse Practitioner Family; Visit Provider Nurse Practitioner Family
DX: M25.561 Pain in right knee (principal)
CPT/HCPCS: 73562

== ENCOUNTER 2025-02-02 09:45 | Outpatient (CLI) | payer BC, OTHER, SELFPAY ==
--- OUTSIDE RECORDS SUMMARY | 2015-05-15 18:00 | XMS_ITS | Continuity of Care Document ---
Author Organization [facility] Address [address] [place] [address] Phone Care Team Providers Care Extractive Metallurgist Name Role Phone [facility] Unavailable Unavail able Deuce Hennessy Unavailable Unavailable Procedures Procedure Date Vision Svcs Frames Purchases SV Plastic Sph [place] To +/- 4 6 Lens-Index 1.54-1.79 Glass Vision [facility] Frames Purchases SV Plastic Sph [place] To +/- 4 2 Tint Photochromatic, Plastic Anti-reflective Coating Roll And/or Macedonian Eye Exam & Treatment Advance Directives Directive Yes / No Effective Date File Name No Information Encounters Encounter Description Practice Location Reason(s) For Visit Diagnoses Date Provider Providers Copied on Encounter formerly [facility], [address], [place], [place], [address], [place] tel:[phone] SEC Enedina Juarez No Information 6 [facility] . [address] [facility], [address], [id number], [place]. tel:[phone] Referring Provider: Dennis Franco, [address] [facility] [address] [facility], [place], [address] . tel:[phone] sulting Provider: Deuce Hennessy, [address], [place], [address] . tel:[phone] [facility], [address], [place], [place], [address], [place] tel:[phone] SEC Enedina Juarez No Information 2 [facility] . [address] [facility], [address], [place], [place], [address], [place]. tel:[phone] Referring Provider: Felipe Michaels, [address] [facility], [place], [address] . tel:[phone] [facility], [address], [place], [place], [address], [place] tel:[phone] SEC Enedina Juarez No Information 2 Kaylah Wang. [address] [facility], [facility] [place], [address], [place]. tel:[phone] Family History Family Member Type Diagnosis Age At Onset No Information Payers Payer name Insurance type Covered libertarian ID Authorjacoba rogejessee(s) [facility] CI [id number] Social History Type Description Quantity Date Captured Comments Sex Female Smoking Status No Information Chief Complaint And Reason For Visit No Information Reason For Referral Reason For Referral No Information History Of Present Illness Encounter Date Complaint History Of Prese nt Illness No Information Functional Status Date Functional Assessmen t No Information Instructions Date Instruction Additional Infor mation No Information Assessments Type Assessment Date No Information Patient Care Teams Name Effective Dates (start - stop) Status Members No Information
--- OUTSIDE RECORDS SUMMARY | 2015-05-15 18:00 | XMS_ITS | Continuity of Care Document ---
Author Organization [facility] Address [address] [place] [address] Phone Care Team Providers Care Roll Reclaimer Name Role Phone [facility] Unavailable Unavail able Deuce Hennessy Unavailable Unavailable Procedures Procedure Date Vision Svcs Frames Purchases SV Plastic Sph [place] To +/- 4 6 Lens-Index 1.54-1.79 Glass Vision S[facility] Frames Purchases SV Plastic Sph [place] To +/- 4 2 Tint Photochromatic, Plastic Anti-reflective Coating Roll And/or Hungarian Eye Exam & Treatment Advance Directives Directive Yes / No Effective Date File Name No Information Encounters Encounter Description Practice Location Reason(s) For Visit Diagnoses Date Provider Providers Copied on Encounter [facility], [address], [place], [place], [address], [place] tel:[phone] SEC Enedina Juarez No Information 6 [facility] . [address] [facility], [address], [id number], [place]. tel:[phone] Referring Provider: Dennis Franco, [address] [facility] [address] [facility], [place], [address] . tel:[phone] sulting Provider: Deuce Hennessy, [address], [place], [address] . tel:[phone] [facility], [address], [place], [place], [address], [place] tel:[phone] SEC Enedina Juarez No Information 2 [facility] . [address] [facility], [address], [place], [place], [address], [place]. tel:[phone] Referring Provider: Felipe Michaels, [address] [facility], [place], [address] . tel:[phone] [facility], [address], [place], [place], [address], [place] tel:[phone] SEC Enedina Juarez No Information 2 Kaylah Wang. [address] [facility], [facility] [place], [address], [place]. tel:[phone] Family History Family Member Type Diagnosis Age At Onset No Information Payers Payer name Insurance type Covered alliance party ID Authorjacoba rogejessee(s) [facility] CI [id number] Social History Type Description Quantity Date Captured [...]
--- OUTSIDE RECORDS SUMMARY | 2015-05-15 18:00 | XMS_ITS | Continuity of Care Document ---
Author Organization [facility] Address [address] [place] [address] Phone Care Team Providers Care Photographic Process Worker Name Role Phone [facility] Unavailable Unavail able Deuce Hennessy Unavailable Unavailable Procedures Procedure Date Vision Svcs Frames Purchases SV Plastic Sph [place] To +/- 4 6 Lens-Index 1.54-1.79 Glass [facility] S[facility] Frames Purchases SV Plastic Sph [place] To +/- 4 2 Tint Photochromatic, Plastic Anti-reflective Coating Roll And/or Japanese Eye Exam & Treatment Advance Directives Directive Yes / No Effective Date File Name No Information Encounters Encounter Description Practice Location Reason(s) For Visit Diagnoses Date Provider Providers Copied on Encounter [facility], [address], [place], [place], [address], [place] tel:[phone] SEC Enedina Juarez No Information 6 [facility] . [address] [facility], [address], [id number], [place]. tel:[phone] Referring Provider: Dennis Franco, [address] [facility] [address] [facility], [place], [address] . tel:[phone] sulting Provider: Deuce Hennessy, [address], [place], [address] . tel:[phone] [facility], [address], [place], [place], [address], [place] tel:[phone] SEC Enedina Juarez No Information 2 [facility] . [address] [facility], [address], [place], [place], [address], [place]. tel:[phone] Referring Provider: Felipe Michaels, [address] [facility], [place], [address] . tel:[phone] [facility], [address], [place], [place], [address], [place] tel:[phone] SEC Enedina Juarez No Information 2 Kaylah Wang. [address] [facility], [facility] [place], [address], [place]. tel:[phone] Family History Family Member Type Diagnosis Age At Onset No Information Payers Payer name Insurance type Covered republican ID Authorjacoba rogejessee(s) [facility] CI [id number] Social History Type Description Quantity Date Captured [...]
--- NOTE | ~2025-02-02 | MM_ITS ---
EXAMINATION: MM diagnostic edward BI w antolin INDICATION: Asymptomatic, BI-RADS 3, short-term follow-up of calcifications in both breasts. COMPARISON: 04/21/2024 and 03/10/2024 TECHNIQUE: Digital Breast Tomosynthesis CC, MLO views of Both breasts were obtained with computer-aided detection to assist in interpretation of the study. FINDINGS: There are scattered areas of fibroglandular density. No new dominant mass, area of architectural distortion or suspicious calcifications seen in either breast. Previously reported calcifications in the right breast at benign microcyst type calcifications. The previously reported probably benign punctate calcifications loosely grouped in the left breast are unchanged. IMPRESSION: 1. No mammographic evidence of malignancy within the right breast. 2. Probably benign round and punctate calcifications in the left breast are unchanged. RECOMMENDATION: 6 month follow-up bilateral diagnostic mammography. BI-RADS 3, PROBABLY BENIGN Reviewed, dictated and finalized at location B. HER AND BLENDER OPERATOR IMPRESSION: 1. No mammographic evidence of malignancy within the right breast. 2. Probably benign round and punctate calcifications in the left breast are un changed. RECOMMENDATION: 6 month follow-up bilateral diagnostic mammography. BI-RADS 3, PROBABLY BENIGN
--- OUTSIDE RECORDS SUMMARY | 2025-02-02 17:31 | XMS_ITS | Encounter Summary ---
Author Organization [facility] Address [address] [place] [address] Phone Care Team Providers Care Guest Service Team Leader Name Role Phone Dominguez, Irina LAMBERT CNP Primary Care Provider [phone] Celso Murillo MD Unavailable Reason for Visit * Reason Comments Medication Refill Encounter Details Date Type Department Care Team (Late st Contact Info) Description 07/14/2020 Refill [facility] [address] [place] [address] Celso Murillo MD [address] [place] [address] Medication Refill Social History Tobacco Use Types Packs/Day Years Used Date Smoking Tobacco: Every Day Cigarettes 1 27 Smokeless Tobacco: Never Comments:slowed down Alcohol Use Standard Drinks/Week Comments Yes 0 (1 standard drink = 0.6 oz pur e alcohol) OCCASIONAL Sexually Active Control Partners Comments Yes Comments No Sex and Gender Information Value Date Recorded Sex Assigned at Not on file Legal Sex Female 9:24 PM CDT Gender Identity Not on file Sexual Orientation Not on file documented as of this encounter Miscellaneous Notes * Telephone Encounter - Carmen Rojo RN - 07/14/2020 11:57 AM CDT Requested Prescriptions Pending Prescriptions Disp Refills ??? predniSONE (DELTASONE) 10 MG Tablet [Pharmacy Med Name: PREDNISONE TABS 10MG] 10 Tablet 35 Sig: TAKE 1 TABLET DAILY ??? Beclomethasone Diprop HFA (Qvar RediHaler) 80 MCG/ACT AEROSOL, BREATH ACTIVATED 1 Inhaler 0 Sig: take 1 Puff by inhalation 2 times daily. 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
--- OUTSIDE RECORDS SUMMARY | 2025-02-02 17:31 | XMS_ITS | Clinical Summary ---
Author Organization [facility] Care Team Providers Care Supervisor Inspection Department Name Role Phone AngelicaBryantIrinadennis Waldron NP Primary Care Provider Allergies Active Allergy Reactions Criticality Noted Date [...] Smoking Hypertension COPD (chronic obstructive pulmonary disease) Family History Medical History Relation Name Comments [...] on file Legal Sex Female 10:57 AM GUIDE Gender Identity Female 02/03/2020 7:30 AM GUIDE Sexual Orientation Straight 02/03/2020 7: 30 AM GUIDE Obstetrics History Para Term AB IAB SAB Ectopic Multiple Livin g Live Births 2 2 2 Date Outcome GA Total Labor Labor/2nd/3rd Weight Sex Type Anes PTL Liliana A1 A5 Name Clin Term Term Last Filed Vital Signs Vital Sign Reading Time Taken Comments Blood Pressure 120/90 02/16/2021 11:44 AM GUIDE Pulse 85 02/16/2021 11:44 AM GUIDE Temperature 36.4 C (97.5 F) 02/03/2020 8:23 AM GUIDE Respiratory Rate 12 02/16/2021 11:44 AM GUIDE Oxygen Saturation - - Inhaled Oxygen Concentration - - Weight 69.7 kg (153 lb 8.8 oz) 02/16/2021 11:44 AM GUIDE Height 157.5 cm (5' 2) 02/16/2021 11:44 AM GUIDE Body Mass Index 28.08 02/16/2021 11:44 AM GUIDE Plan of Treatment Not on file Insurance [employer] [id number] [place] [id number] Care Teams Supervisor Inspection Department Relationship Specialty Start Date End Date Irina Dominguez NP [address] [place] [address] PCP - General Nurse Practitioner 10/05/20
--- OUTSIDE RECORDS SUMMARY | 2025-02-02 17:31 | XMS_ITS | Encounter Summary ---
Author Organization [facility] Address [address] [place] [address] Phone Care Team Providers Care Vending Machine Operator Name Role Phone Dominguez, Irina LAMBERT CNP Primary Care Provider [phone] [phone] Celso Murillo MD Unavailable Encounter Details Date Type Department Care Team (Latest Contact Info) Description 02/15/2022 Transcribe [facility] [address] [place] [address] Juno Garcia MD [address] [place] [address] Pre-op testing (Primary Dx) Social History Tobacco Use Types Packs/Day Years Used Date Smoking Tobacco: Every Day Cigarettes 1 27 Smokeless Tobacco: Never Comments:slowed down Alcohol Use Standard Drinks/Week Comments Yes 0 (1 standard drink = 0.6 oz pur e alcohol) OCCASIONAL Sexually Active Control Partners Comments Yes Surgical Male HYSTERECTOMY Comments No Sex and Gender Information Value Date Recorded Sex Assigned at Not on file Legal Sex Female 9:24 PM CDT Gender Identity Not on file Sexual Orientation Not on file COVID-19 Exposure Response Date Recorded In the last 10 days, have yo u been in contact with someone who was confirmed or suspected to have Coronavirus/COVID-19? 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 [address] [place] [address] Celso Murillo MD [address] [place] [address] documented as of this encounter Results * (ABNORMAL) BASIC METABOLIC PANEL W/ CALCIUM TOTAL (02/19/2022 9:02 AM AUTOMOBILE ASSEMBLY SUPERVISOR) SODIUM 135(L) 136 - 144 mmol/L 02/19/2022 10:34 AM AUTOMOBILE ASSEMBLY SUPERVISOR [facility] POTASSIUM 3.9 3.5 - 5.1 mmol/L 02/19/2022 10:34 AM [facility] CHLORIDE 96(L) 100 - 110 mmol/L 02/19/2022 10:34 AM AUTOMOBILE ASSEMBLY SUPERVISOR [facility] CO2, VENOUS 28 22 - 32 mmol/L 02/19/2022 10:34 AM [facility] ANION GAP 14.9 8.0 - 20.0 mmol/L 02/19/2022 10:34 AM [facility] GLUCOSE 104(H) 70 - 99 mg/dL 02/19/2022 10:34 AM [facility] BUN 6 6 - 20 mg/dL 02/19/2022 10:34 AM [facility] CREATININE, BLOOD 0.68 0.60 - 1.10 mg/dL 02/19/2022 10:34 AM [facility] BUN/CREATININE RATIO 9(L) 12 - 20 ratio 02/19/2022 10:34 AM [facility] CALCIUM 9.5 8.9 - 10.3 mg/dL 02/19/2022 10:34 AM [facility] IS THE PATIENT REQUIRED TO BE FASTING? No 02/19/2022 10:34 AM [facility] GFR, ESTIMATED >60 >=60 02/19/2022 10:34 AM AUTOMOBILE ASSEMBLY SUPERVISOR [facility] Comment: Creatinine Clearance is the preferred criteria for selecting drug dose adjustments in renally impaired patients. The GFR is provided as additional pertinent clinical information. GFR is reported in mL/min/1.73 sq m. Calculation based on the Chronic Kidney Disease Epidemiology Collaboration (CKD- EPI) equation refit without adjustment for race. GFR, EST. >60 >=60 022 10:34 AM AUTOMOBILE ASSEMBLY SUPERVISOR [facility] GFR, EST. NONAFRICAN >60 >=60 02/19/2022 10:34 AM AUTOMOBILE ASSEMBLY SUPERVISOR [facility] Blood Venipuncture / Unknown 02/19/2022 9:02 AM AUTOMOBILE ASSEMBLY SUPERVISOR 02/19/2022 10:09 AM AUTOMOBILE ASSEMBLY SUPERVISOR Trey Cleveland MD CHEMISTRY ORDERABLES Final Result [facility] [address] [place] [address] * SARS-COV-2 BY MOLECULAR (02/19/2022 9:02 AM AUTOMOBILE ASSEMBLY SUPERVISOR) SARSCOV2 NOT DETECTED (Referenc e Range for this test is Not Detected) [facility] ID NOW 02/19/2022 10:25 AM AUTOMOBILE ASSEMBLY SUPERVISOR [facility] Comment:This test was perfor med by a MOLECULAR, NON-PCR method Other NASOPHARYNGEAL STRUCTURE / Unknown Non-Phlebotomy Collection / Unknown 02/19/2022 9:02 AM AUTOMOBILE ASSEMBLY SUPERVISOR 02/19/2022 10:10 AM AUTOMOBILE ASSEMBLY SUPERVISOR Narrative [facility] - 02/19/2022 10:25 AM AUTOMOBILE ASSEMBLY SUPERVISOR This test has been authorized by the FDA under an Emergency Use Authorization (EUA) only. Negative results should be treated as presumptive and, if inconsistent with clinical signs and symptoms or necessary for patient management, the patient should be tested with an alternative molecular assay. Negative results do not preclude SARS-CoV-2 infection or any other respiratory pathogen. Additional information for Clinicians can be found at: https://www.fda.gov/media/843199/download Additional information for Patients can be found at: https://www.fda.gov/media/326378/download Trey Cleveland MD MICROBIOLOGY - GENERA L ORDERABLES Final Result [facility] [address] [place] [address] documented in this encounter Visit Diagnoses Diagnosis Pre-op testing- Primary Preoperative examination, unspecified documented in this encounter Care Teams Vending Machine Operator Relationship Specialty Start Date End Date Irina Dominguez APRN, CNP PCP - General Family Medicine 06/07/20 Celso Murillo MD [address] [place] [address] Consulting Physician Pulmonary Disease 02/19/22 documented as of this encounter
--- OUTSIDE RECORDS SUMMARY | 2025-02-02 17:31 | XMS_ITS | Encounter Summary ---
Author Organization [facility] Address [address] [place] [address] Phone Care Team Providers Care National Accounts Sales Name Role Phone Dominguez, Irina LAMBERT CNP Primary Care Provider [phone] [phone] Celso Murillo MD Unavailable Encounter Details Date Type Department Care Team (Late st Contact Info) Description 02/02/2025 [facility]ill [facility] [address] [place] [address] Celso Murillo MD [address] [place] [address] Social History Tobacco Use Types Packs/Day Years [...] encounter Miscellaneous Notes * Telephone Encounter - Elle Oliva RN - 02/02/2025 3:46 PM CST Medication(s) refilled and signed per [facility] Chronic Medication Refill Standing Order for Pediatricand Adult Patients. Requested Prescriptions Pending Prescriptions Disp Refills albuterol (ProAir HFA) 108 (90 Base) MCG/ACT Aerosol Solution 8.5 g 5 Sig: take 2 Puffs by inhalation every 4 hours as needed for Wheezing. Short Acting Inhaled Beta-Agonists Protocol Passed - 02/02/2025 3:46 PM Passed - Visit with relevant provider in past 12 months or upcoming 90 days Recent Visits Date Type Provider Dept 08/21/24 Office Visit Celos Murillo MD [facility] Showing recent visits within past 365 days and meeting all other requirements Future Appointments Date Type Provider Dept 02/22/25 Appointment Celso Murillo MD [facility] Showing future appointments within next 90 days and meeting all other requirements fluticasone-salmeterol (Wixela Inhub) 250-50 MCG/ACT AEROSOL POWDER, BREATH ACTIVATED 180 Each 0 Sig: take 1 Puff by inhalation 2 times daily. Inhaled Combinations Protocol Passed - 02/02/2025 3:46 PM Passed - Visit with relevant provider in past 12 months or upcoming 90 days Recent Visits Date Type Provider Dept 08/21/24 Office Visit Celso Murillo MD [facility] Showing recent visits within past 365 days and meeting all other requirements Future Appointments Date Type Provider Dept 02/22/25 Appointment Celso Murillo MD [facility] Showing future appointments within next 90 days and meeting all other requirements Passed - Active short-acting beta agonist prescription CABINET FINISHER * Telephone Encounter - Sierra Torres - 02/02/2025 2:37 PM CST Patient needs a refill CABINET FINISHER documented in this encounter Plan of Treatment Upcoming Encounters Date Type Department Care Team (Late st Contact Info) Description 02/22/2025 10:00 AM WOOD CABINET FINISHER Office Visit [facility] - Pulmonology & Sleep Medicine - [place] [address] [place] [address] Celso Murillo MD [address] [place] [address] documented as of this encounter Visit Diagnoses Diagnosis Panlobular emphysema Other emphysema documented in this encounter Care Teams National Accounts Sales Relationship Specialty Start Date End Date Irina Dominguez APRN, EVENT HOST PCP - General Family Medicine 06/07/20 Celso Murillo MD [address] [place] [address] Consulting Physician Pulmonary Disease 02/19/22 documented as of this encounter
--- OUTSIDE RECORDS SUMMARY | 2025-02-02 17:31 | XMS_ITS | Clinical Summary ---
Author Organization [facility] Address [address] [facility], [place] [address] Phone Care Team Providers Care Commercial Crabber Name Role Phone Angelica, Irina LAMBERT CNP Primary Care Provider [phone] Celso Murillo MD Unavailable Allergies Active Allergy Reactions Criticality Noted Date Comments Amlodipine Other (see Comments) 11/26/2016 EDEMA Doxycycline Hives,Vomiting 11/26/2016 Lisinopril Other (see Comments) 11/26/2016 COUGH Penicillins Hives 11/26/2016 Prochlorperazine Unknown 02/15/[address] SINGLETARY'S RECORD, BUT PATIENT HAS NO KNOWLEDGE OF THIS Medications ergocalciferol (VITAMIN D) 77516 UNIT Capsule Take 50,000 Units by mouth once a week. SATURDAY 3 08/25/19 17 Active albuterol (PROVENTIL, VENTOLIN) (2.5 MG/3ML) 0.083% Nebulizer Soln 2.5 mg by Nebulization route. Active fluticasone (FLONASE) 50 MCG/ACT Suspension 1-2 Sprays by Nasal route daily as needed. Use in each nostril as directed. Active hydroCHLOROthi azide 25 MG Tablet Take 25 mg by mouth daily. Active metoprolol Succinate (TOPROL-XL) 25 MG TABLET SR 24 HR Take 25 mg by mouth daily. Active fenofibrate (LOFIBRA) 54 MG Tablet 01/28/20 18 Active aspirin 81 MG Chewable Tablet 01/28/20 18 Active montelukast (SINGULAIR) 10 MG Tablet 11/20/19 18 Active Cetirizine HCl (ZYRTEC PO) Take by mouth. Act tatiana traMADol (ULTRAM) 50 MG Tablet Take 1 Tab by mouth every 6 hours as needed for Moderate or more severe pain. 20 Tab 12/15/19 20 Active azithromycin (ZITHROMAX) 250 MG Tablet 2 tab(s) daily for 1 day, then 1 tab(s) daily for days 2-5. 6 Tab 02/15/20 20 Active Additional Information Patient not taking.Reported on 02/15/2022 predniSONE (DELTASONE) 10 MG TabletIndicati ons:Panlobular emphysema TAKE 1 TABLET DAILY 10 Tablet 35 07/15/19 21 Active Cholecalcifero l (VITAMIN D3 SUPER STRENGTH PO)Indications :USES OVER THE COUNTER Take 10,000 Units by mouth daily. Indications: USES OVER THE COUNTER Active predniSONE (DELTASONE) 10 MG Tablet Take 1 Tablet by mouth daily. 10 Tablet 5 06/20/19 22 Active Additional Information Patient not taking.Reason: PER PATIENT'S STATEMENT, USES FOR EXACERBATIONS OF SEASONAL ALLERGIES ONLY NEEDED PER DR. MURILLO, Reported on 02/15/2022 hydroCHLOROthi azide 25 MG Tablet Take 1 Tablet by mouth daily. 90 Tablet 3 06/20/19 22 Active Krill Oil 500 MG Capsule Take 1 Capsule by mouth daily. Active APPLE CIDER VINEGAR PO Take 1,000 mg by mouth daily. Active Ascorbic Acid (VITAMIN C PO)Indications :OVER THE COUNTER Take 564 mg by mouth. Indications: OVER THE COUNTER Active Multiple Vitamin (MULTIVITAMIN PO) Take 1 Tablet by mouth daily. Active fexofenadine (ADA) 180 MG Tablet Take 180 mg by mouth daily. Active Bacillus Coagulans-Inul in (Probiotic) 1-250 BILLION-MG Capsule Take by mouth. Activ e HYDROcodone-ac etaminophen (NORCO) 5-325 MG TabletIndicati ons:Impingemen t syndrome of right shoulder Take 1 Tablet by mouth every 4 hours as needed for Moderate or more severe pain. 20 Tablet 02/23/20 22 Active Qvar RediHaler 80 MCG/ACT AEROSOL, BREATH ACTIVATEDIndic ations:Panlobu lar emphysema USE 1 INHALATION TWICE A DAY 10.6 g 5 09/04/19 23 Active Additional Information Patient not taking.Reported on 08/21/2024 [place]-3 Fatty Acids (OMEGA 3 PO) Take by mouth. Activ e predniSONE (DELTASONE) 10 MG TabletIndicati ons:Panlobular emphysema Take 1 Tablet by mouth daily. 10 Tablet 3 04/23/19 24 Active Additional Information Patient not taking.Reported on 08/21/2024 Beclomethasone Diprop HFA (Qvar RediHaler) 80 MCG/ACT AEROSOL, BREATH ACTIVATED take 2 Puffs by inhalation daily. 1 g 6 07/23/19 24 Active predniSONE (DELTASONE) 10 MG Tablet Take 1 Tablet by mouth daily. 10 Tablet 5 01/24/20 24 Active Cyanocobalamin (VITAMIN B 12 PO) Take by mouth. Activ e furosemide (Lasix) 20 MG Tablet Take 10 mg by mouth daily. Active VITAMIN D PO Take by mouth. Ac tive albuterol (ProAir HFA) 108 (90 Base) MCG/ACT Aerosol SolutionIndica tions:Panlobul ar emphysema take 2 Puffs by inhalation every 4 hours as needed for Wheezing. 8.5 g 5 02/03/20 25 Active fluticasone-sa lmeterol (Wixela Inhub) 250-50 MCG/ACT AEROSOL POWDER, BREATH ACTIVATEDIndic ations:Panlobu lar emphysema take 1 Puff by inhalation 2 times daily. 180 Each 02/03/20 25 Active albuterol (ProAir HFA) 108 (90 Base) MCG/ACT Aerosol SolutionIndica tions:Panlobul ar emphysema take 2 Puffs by inhalation every 4 hours as needed for Wheezing. 8.5 g 5 01/19/20 23 025 Discontin ued(Reord er) fluticasone-sa lmeterol (Wixela Inhub) 250-50 MCG/ACT AEROSOL POWDER, BREATH ACTIVATEDIndic ations:Panlobu lar emphysema USE 1 INHALATION ORALLY IN THE MORNING AND AT BEDTIME 180 Each 07/14/19 25 025 Discontin ued(Reord er) Active Problems Problem Noted Date Diagnosed Date CLEOPATRA (obstructive sleep apnea) 01/28/2018 Cough 12/11/2016 Tobacco use disorder 12/11/2016 Essential (primary) hypertension 12/11/2016 Panlobular emphysema 12/11/2016 Encounters Date Type Department Care Team Description 02/02/2025 Refill [facility] - Pulmonology & [facility] Medicine [facility] [address] [place] [address] Celso Murillo MD 01/05/2025 Telephone [facility] [address] [place] [address] Irina Dominguez APRN, LYN 12/10/2024 Telephone [facility] [address] [place] [address] Irina Dominguez APRN, LYN from Last 3 Months Immunizations Immunization Administration Dates Next Due Covid-19, Mrna, Lnp-s, Pf, 30 Mcg/0.3 Ml Dose (P daniel) 06/28/2020,05/31/2020 Family History Medical History Relation Name Comments Rheumatoid Arthritis Father Cancer Maternal Grandfather Cancer Maternal Grandmother Breast Cancer Mother Cancer Mother Diabetes Mother Hypertension Mother Other-comment Mother MALIGNANT TUMO R OF BREAST, MALIGNANT NEOPLASM OF UTERUS Hypertension Sister Migraines Sister Other-comment Sister MALIGNANT NEOP LASM OF UTERUS Relation Name Status Comments Father Alive Maternal Grandfather throat cancer Maternal Grandmother pancrea tic cancer Mother Alive Sister Social History Tobacco Use Types Packs/Day Years Used Date Smoking Tobacco: Every Day Cigarettes 1 27 Smokeless Tobacco: Never Tobacco Cessation:Ready to Q uit: No; Counseling Given: Yes Comments:slowed down Alcohol Use Standard Drinks/Week Comments Yes 0 (1 standard drink = 0.6 oz pur e alcohol) OCCASIONAL Sexually Active Control Partners Comments Yes Surgical Male HYSTERECTOMY Comments No Sex and Gender Information Value Date Recorded Sex Assigned at Not on file Legal Sex Female 9:24 PM CDT Gender Identity Not on file Sexual Orientation Not on file Last Filed Vital Signs Vital Sign Reading Time Taken Comments Blood Pressure 130/70 08/21/2024 11:07 AM CDT Pulse 95 08/21/2024 11:07 AM CDT Temperature 36.6 C (97.9 F) 08/21/2024 11:07 AM CDT Respiratory Rate 14 08/21/2024 11:0 7 AM CDT Oxygen Saturation 95% 08/21/2024 11: 07 AM CDT Inhaled Oxygen Concentration - - Weight 73.4 kg (161 lb 14.4 oz) 025 11:07 AM CDT Height 157.5 cm (5' 2) 08/21/2024 11:0 7 AM CDT Body Mass Index 29.61 08/21/2024 11:07 AM CDT Plan of Treatment Upcoming Encounters Date Type Department Care Team (Late st Contact Info) Description 02/22/2025 10:00 AM DIRECT SUPPORT WORKER Office Visit [facility] - Pulmonology & Sleep Medicine [facility] [address] [place] [id number] Celso Murillo MD [address] [place] [address] Health Maintenance Due Date Last Done Comments Hepatitis C Virus (HCV) Screening 1971 Varicella Immunization (1 of 2 - 13+ 2-dose series) 1984 Cologuard 2016 Colonoscopy 2016 Colorectal Cancer Screening 2016 Immunochemical Fecal Occult Blood 2016 Respiratory Syncytial Virus (RSV) Immunization (Adult) (1 - Risk 50-74 years 1-dose series) 2021 Zoster Immunization (2 of 2) 10/17/2024 08/22/2024 Influenza Immunization (#1) 11/16/202402/15, 12/06/2022, 12/20/2019, Additional history exists SARS-COV-2 Immunization ( season) 2024 08/10/2021, 04/07/2021, 06/28/2020, Additional history exists Mammogram 04/21/2025 04/21/2024, 02/16, 03/15/2021, Additional history exists Lung Cancer Screening 09/23/2025 09/23/2024, 024 DTaP/Tdap/Td Immunization Discontinued 06/04/2016 TdaP Immunization Completed 06/04/2016 Hepatitis B Immunization Completed 020, 11/24/2018, 10/23/2018 Pneumococcal Immunization (50+ years) Completed 07/19/2022 Pneumococcal Immunization Combined Discontinued 07/19/2022 Discussion re Starting/Frequency of Mammograms Discontinued 04/21/2024, 03/10/2024, 03/15/2021, Additional history exists Human Papillomavirus (HPV) Immunization Aged Out No longer eligible based on patient's age to complete this topic Meningococcal Immunization (ACWY) Aged Out No longer eligible based on patient's age to complete this topic Rotavirus Immunization Aged Out No lo nger eligible based on patient's age to complete this topic Procedures Procedure Name Priority Date/Time Associated Diagnosis Comments CT CHEST W/O CONTRAST Routine 09/23/2024 4:[address] of the chest WISAM DIAG BILATERAL DIGITAL W CAD Routine 04/21/2024 2:36 PM DIRECT SUPPORT WORKER Other abnormal and inconclusive findings on diagnostic imaging of breast Other signs and symptoms in breast from Last 3 Months or Most Recently Relevant to Health Maintenance Results * CT CHEST W/O CONTRAST (09/23/2024 4:56 PM CDT) Anatomical Region Laterality Modality Chest N/A Computed Tomogra phy 10/12/2024 6:42 AM CDT Impressions 10/12/2024 6:44 AM CDT IMPRESSION: 1. Redemonstration of biapical pleural thickening and scarring, which is overall grossly similar to the prior study. No definite evidence of a new suspicious pulmonary nodule. 2. Mild to moderate emphysematous changes of lungs with scattered mild subsegmental atelectasis and scarring. 3. Mosaic attenuation of the bilateral lungs, which is likely related to air trapping/reactive small airways disease. Lung-RADS category 2: Benign appearance or behavior. Recommendation: Low dose Screening CT of chest in 12 months. Narrative 10/12/2024 6:44 AM CDT EXAM DESCRIPTION: CT CHEST W/O CONTRAST REASON FOR STUDY: Screening CT of the chest in a current smoker with a 36 pack year smoking history. Additional history: Prior exam was characterized as a Lung rads 3 with biapical pleural thickening. History of COPD and hypertension.. TECHNIQUE: Low dose CT scan of the chest was performed without intravenous contrast using helical scanning technique. The exam extends from the lung apices through the lung bases. Automatic exposure control was used as a dose optimization technique. NOTE: This study was performed for the specific purposes of lung cancer screening and is not an alternative to diagnostic chest CT. RADIATION DOSE: CT dose index volume (CTDIvol) = 10.35 mGy COMPARISON: 02/27/2024 FINDINGS: SMOKING RELATED LUNG DISEASE: There are [id number] emphysematous changes of lungs with scattered mild subsegmental atelectasis and scarring. There is mosaic attenuation of the bilateral lungs, which is likely related to air trapping/reactive small airways disease. There is no definite evidence of a pneumothorax. The central airways are grossly patent. There is no definite evidence of focal consolidation or pleural effusion. There is a calcified granuloma in the left lower lobe. LUNG NODULES: There is biapical pleural thickening and scarring, which is greater on the left than the right, and is overall grossly similar to the prior study. There is no definite evidence of a new suspicious pulmonary nodule. CORONARY ARTERY CALCIFICATION: Not identified. OTHER: The heart size is stable. There is no definite evidence of pericardial effusion. There are mild atherosclerotic changes of the thoracic aorta. There is no definite unenhanced CT evidence of mediastinal, hilar, or axillary lymphadenopathy. There are scattered subcentimeter mediastinal lymph nodes noted with largest measuring 0.5 cm in the subcarinal region (axial image 46). The visualized portions of the bilateral adrenal glands are grossly stable and unremarkable. There is a mild dextroscoliotic curvature of the spine with mild degenerative changes. THIS IS AN ELECTRONICALLY VERIFIED FINAL REPORT 10/12/2024 6:42 AM - Electronically signed by Ashlie Euceda D.O. PS: PS Report ID: [id number] Reading Location: [id number] Procedure Note Ashlie Euceda DO - 10/12/2024 EXAM DESCRIPTION: CT CHEST W/O CONTRAST REASON FOR STUDY: Screening CT of the chest in a current smoker with a 36 pack year smoking history. Additional history: Prior exam was characterized as a Lung rads 3 with biapical pleural thickening. History of COPD and hypertension.. TECHNIQUE: Low dose CT scan of the chest was performed without intravenous contrast using helical scanning technique. The exam extends from the lung apices through the lung bases. Automatic exposure control was used as a dose optimization technique. NOTE: This study was performed for the specific purposes of lung cancer screening and is not an alternative to diagnostic chest CT. RADIATION DOSE: CT dose index volume (CTDIvol) = 10.35 mGy COMPARISON: 02/27/2024 FINDINGS: SMOKING RELATED LUNG DISEASE: There are ikrh-[id number] emphysematous changes of lungs with scattered mild subsegmental atelectasis and scarring. There is mosaic attenuation of the bilateral lungs, which is likely related to air trapping/reactive small airways disease. There is no definite evidence of a pneumothorax. The central airways are grossly patent. There is no definite evidence of focal consolidation or pleural effusion. There is a calcified granuloma in the left lower lobe. LUNG NODULES: There is biapical pleural thickening and scarring, which is greater on the left than the right, and is overall grossly similar to the prior study. There is no definite evidence of a new suspicious pulmonary nodule. CORONARY ARTERY CALCIFICATION: Not identified. OTHER: The heart size is stable. There is no definite evidence of pericardial effusion. There are mild atherosclerotic changes of the thoracic aorta. There is no definite unenhanced CT evidence of mediastinal, hilar, or axillary lymphadenopathy. There are scattered subcentimeter mediastinal lymph nodes noted with largest measuring 0.5 cm in the subcarinal region (axial image 46). The visualized portions of the bilateral adrenal glands are grossly stable and unremarkable. There is a mild dextroscoliotic curvature of the spine with mild degenerative changes. THIS IS AN ELECTRONICALLY VERIFIED FINAL REPORT 10/12/2024 6:42 AM - Electronically signed by Ashlie Euceda D.O. PS: PS Report ID: [id number] Reading Location: [place] [address] IMPRESSION: 1. Redemonstration of biapical pleural thickening and scarring, which is overall grossly similar to the prior study. No definite evidence of a new suspicious pulmonary nodule. 2. Mild to moderate emphysematous changes of lungs with scattered mild subsegmental atelectasis and scarring. 3. Mosaic attenuation of the bilateral lungs, which is likely related to air trapping/reactive small airways disease. Lung-RADS category 2: Benign appearance or behavior. Recommendation: Low dose Screening CT of chest in 12 months. us Celso Murillo MD IMG CT ORDERABLES Final Result * WISAM DIAG BILATERAL DIGITAL W CAD (04/21/2024 2:36 PM DIRECT SUPPORT WORKER) Anatomical Region Laterality Modality breast Bilateral Mammography 04/21/2024 1:45 PM DIRECT SUPPORT WORKER Narrative 04/21/2024 2:55 PM DIRECT SUPPORT WORKER - WISAM DIAG BILATERAL DIGITAL W CAD BILATERAL DIGITAL DIAGNOSTIC MAMMOGRAM WITH CAD WITH MEDIOLATERAL CRANIOCAUDAL SPOT COMPRESSION AND MAGNIFICATION: 04/21/2024 The study was acquired using digital technology and interpreted from soft copy. Current study was also evaluated with [employer] version 7.2. CLINICAL: Diagnostic study. Patient returns for magnifcation views of calcifications in both breasts. Mother with postmenopausal breast cancer. COMPARISONS: Comparison is made to exams dated: 03/15/2021 [facility], 03/10/2024 [facility], and 01/01/2020 [facility]. BREAST TISSUE:There are scattered areas of fibroglandular density. FINDINGS: Additional views of both breasts were obtained to include magnification views. The calcifications at the 1 o'clock position of the right breast, middle depth and the calcifications at the 12 o'clock position of the left breast anteriorly demonstrate a probably benign appearance. The calcifications in the right breast demonstrate layering on the lateral view and may be milk of calcium. The calcifications in the left breast are largely scattered. Short-term follow-up is recommended. IMPRESSION: PROBABLY BENIGN Bilateral breast calcifications are probably benign. A follow-up mammogram in 6 months is recommended to demonstrate stability. The results and recommendations were discussed with the patient. Electronically signed by: Aracelis Tapia M.D. ll/:04/21/2024 14:36:28 Youth Program Director(s): RT Neri(R)(M), [facility] letter sent: Birad 3 Followup Reading location: [facility] Mammogram BI-RADS: Category 3: Probably Benign Procedure Note Aracelis Tapia MD - 04/21/2024 - WISAM DIAG BILATERAL DIGITAL W CAD BILATERAL DIGITAL DIAGNOSTIC MAMMOGRAM WITH CAD WITH MEDIOLATERAL CRANIOCAUDAL SPOT COMPRESSION AND MAGNIFICATION: 04/21/2024 The study was acquired using digital technology and interpreted from soft copy. Current study was also evaluated with IC[employer] version 7.2. CLINICAL: Diagnostic study. Patient returns for magnifcation views of calcifications in both breasts. Mother with postmenopausal breast cancer. COMPARISONS: Comparison is made to exams dated: 03/15/2021 [facility], 03/10/2024 [facility], and 01/01/2020 [facility]. BREAST TISSUE:There are scattered areas of fibroglandular density. FINDINGS: Additional views of both breasts were obtained to include magnification views. The calcifications at the 1 o'clock position of the right breast, middle depth and the calcifications at the 12 o'clock position of the left breast anteriorly demonstrate a probably benign appearance. The calcifications in the right breast demonstrate layering on the lateral view and may be milk of calcium. The calcifications in the left breast are largely scattered. Short-term follow-up is recommended. IMPRESSION: PROBABLY BENIGN Bilateral breast calcifications are probably benign. A follow-up mammogram in 6 months is recommended to demonstrate stability. The results and recommendations were discussed with the patient. Electronically signed by: Aracelis Tapia M.D. ll/:04/21/2024 14:36:28 Youth Program Director(s): RT Neri(R)(M), [facility] letter sent: Birad 3 Followup Reading location: [place] Mammogram BI-RADS: Category 3: Probably Benign Irina Angelica BANK CLERK, SPRUE CUTTING PRESS OPERATOR IMG MAMMO ORDERABLES Soniya l Result from Last 3 Months or Most Recently Relevant to Health Maintenance Insurance [facility] Advance Directives Documents on File Type Date Recorded Patient Manager Medical Expl anation Living Will 02/12/2024 2:34 PM [employer]ESM[employer] MPLIANCE REPORT Care Teams Commercial Crabber Relationship Specialty Start Date End Date Irina Dominguez APRN, CNP PCP - General Family Medicine 06/07/20 Celso Murillo MD [address] [place] [address] Consulting Physician Pulmonary Disease 02/19/22
--- OUTSIDE RECORDS SUMMARY | 2025-02-02 17:32 | XMS_ITS | Encounter Summary ---
Author Organization [facility] Address [address] [place] [id number] Phone Care Team Providers Care Activities Officer Name Role Phone Dominguez, Irina LAMBERT CNP Primary Care Provider [phone] Celso Murillo MD Unavailable Reason for Visit * Reason Comments Medication Refill Encounter Details Date Type Department Care Team (Late st Contact Info) Description 07/21/2023 Refill [facility] - Pulmonology & Sleep Medicine [facility] [address] [place] [address] Celso Murillo MD [address] [place] [address] Medication Refill Social History Tobacco Use Types [...] Telephone Encounter - Elle Oliva RN - 07/22/2023 8:10 AM CDT Medication(s) refilled and signed per [facility] Chronic Medication Refill Standing Order for Pediatricand Adult Patients. Requested Prescriptions Pending Prescriptions Disp Refills Wixela Inhub 250-50 MCG/ACT AEROSOL POWDER, BREATH ACTIVATED [Pharmacy Med Name: WIXELA INHUB INH 250/50] 0 Sig: USE 1 INHALATION ORALLY IN THE MORNING AND AT BEDTIME Inhaled Combinations Protocol Passed - 07/21/2023 5:14 PM Passed - Visit with relevant provider in past 12 months or upcoming 90 days Recent Visits Date Type Provider Dept 01/18/23 Office Visit Celso Murillo MD [facility] Pul & Sleep [facility]ad Showing recent visits within past 365 days and meeting all other requirements Future Appointments Date Type Provider Dept 07/23/23 Appointment Celso Murillo MD [facility] Showing future appointments within next 90 days and meeting all other requirements Passed - Active short-acting beta agonist prescription documented in this encounter Plan of Treatment Upcoming Encounters Date Type Department Care Team (Late st Contact Info) Description 02/22/2025 10:00 AM GROCERY CLERK STOCKING Office [facility] [address] [place] [address] Celso Murillo MD [address] [place] [address] documented as of this encounter Visit Diagnoses Diagnosis Panlobular emphysema Other emphysema documented in this encounter Care Teams Activities Officer Relationship Specialty Start Date End Date Irina Dominguez APRN, CNP PCP - General Family Medicine 06/07/20 Celso Murillo MD [address] [place] [address] Consulting Physician Pulmonary Disease 02/19/22 documented as of this encounter
== END 2025-02-02 09:46 | disposition home or self-care (01) ==
LOC: CHSIMG 09:49
PROVIDERS: PCP Nurse Practitioner Family; Visit Provider Nurse Practitioner Family
DX: R92.8 Other abnormal and inconclusive findings on diagnostic imaging of breast (principal)
CPT/HCPCS: 77062; 77066; G0279